=== PATIENT | male | born 1965 | race Caucasian/White ===

== ENCOUNTER 2016-06-24 07:11 | Day surgery (SDC) | payer BC, OTHER ==
[2016-06-21 12:06] VITALS: BMI 26.5
[~2016-06-24 07:11] MED LIST: LACTATED RINGERS 1,000 ML IV SCH
[2016-06-24 07:28] VITALS: TEMP 96.9
[2016-06-24 07:30] LABS: Glucose,Whole Blood 146 mg/dL (75-99)
[2016-06-24] MEDS ORDERED: PROPOFOL 10 MG/ML 20 ML VIAL IV ONE (08:30)
--- NOTE | 2016-06-24 09:22 | P.PCN ---
Date of Procedure: 06/24/16 Preoperative Diagnosis: Postoperative Diagnosis: Procedure(s) Performed: Procedure: 1. Esophagogastroduodenoscopy and biopsy. 2. Colonoscopy and biopsy. Preoperative diagnosis: Gastroesophageal reflux and screening for colon neoplasia. Postoperative diagnosis: 1. Very small sliding hiatal hernia with no obvious esophagitis or complicated reflux disease. 2. Mild antral gastritis. 3. Mild sigmoid diverticulosis. Preparation: HalfLytely prep. Sedation: Was provided by anesthesia. Brief clinical history: The patient is a 50-year-old male who is referred for this evaluation for the above reasons. For the last 2 months he has been experiencing some abdominal bloating and change in bowel habits as well. No bleeding or other alarm symptoms. Procedure: With the patient on his left lateral decubitus position and after informed consent and adequate sedation, I passed the Olympus-GIF 160 video upper endoscope through the cricopharyngeus down the esophagus. GE junction was around 43 cm from the incisors and there was a very small sliding hiatal hernia less than 1 cm. The esophagus did not show any erosions, ulcers, strictures or Payan's esophagus. The endoscope was then passed into the stomach which was insufflated with air and inspected in detail including the retroflex view in the cardia. There was some mottling and erythema in the antrum but no ulcers or erosions. Pyloric channel, duodenal bulb, post bulbar area and descending duodenum appeared within normal limits. Because of his symptoms, I obtained biopsies from the duodenum, antrum and esophagus then the endoscope was withdrawn and I proceeded with the colonoscopy. Perianal area did not show any fissures or fistulas. There were no masses felt on digital rectal examination. The Olympus CFQ 160L video colonoscope was then inserted in the rectum in the usual fashion and advanced to the cecum. I intubated the ileocecal valve and examined the terminal ileum as well. Terminal ileum and colon appeared healthy with no edema, erythema, friability, ulceration, exudation or spontaneous bleeding. There was occasional diverticular orifices seen scattered in the sigmoid with no evidence of acute diverticulitis or strictures. I retroflexed the endoscope in the rectum before the endoscope was withdrawn. I also obtained biopsies from the terminal ileum and right colon. The patient tolerated the procedure well. Plan: The patient was reassured. Will await pathology results. He will follow up with you as planned. I would be happy to see in the office if his symptoms persist. I recommended repeat colonoscopy in 10 years. Implants: Indications for Procedure: Operative Findings: Description of Procedure:
[2016-06-24 09:33] VITALS: BP 134/83; PULSE 64; RESP 18
== END 2016-06-24 10:10 | disposition home or self-care (01) ==
LOC: ORWHC2ENDO 07:11
DX: Z12.11 Encounter for screening for malignant neoplasm of colon (principal); K29.50 Unspecified chronic gastritis without bleeding; K44.9 Diaphragmatic hernia without obstruction or gangrene; K21.0 Gastro-esophageal reflux disease with esophagitis; K57.30 Diverticulosis of large intestine without perforation or abscess without bleeding; E11.9 Type 2 diabetes mellitus without complications; I10 Essential (primary) hypertension; E78.5 Hyperlipidemia, unspecified; G35 Multiple sclerosis; Z79.84 Long term (current) use of oral hypoglycemic drugs; Z79.82 Long term (current) use of aspirin; Z79.899 Other long term (current) drug therapy
CPT/HCPCS: 88305; 88342; 45380; 43239; J2704

== ENCOUNTER → 2016-08-19 | Outpatient (CLI) | payer BC ==
--- NOTE | 2016-08-19 12:38 | P.STRESS ---
- Stress Test Note Stress Test Results/Findings: Exam Performed: stress test Exam Date: 08/19/16 Height: 5 ft Weight: 87.997 kg Protocol: Anuj Stage: 111 Duration of Exercise: 8:20 Resting Heart Rate: 69 Resting Blood Pressure: 145/100 Maximum Achieved Heart Rate: 132 Maximum Achieved Blood Pressure: 183/52 85% PMHR: 145 100% PMHR: 170 METS: 10.9 Technologist Comment: Stress Test Results/Findings: Baseline rhythm is sinus mechanism, normal axis, poor wave progression. Patient exercised for 8 minutes 2o sec reaching a peak rate of 132 bpm which is equal to 78% maximum predicted heart rate. Test was terminated secondary to fatigue, there was no chest pain. EKG monitoring showed rate related left bundle branch block. Impression: 1. Average exercise tolerance. 2. Nondiagnostic EKG stress test with rate related left bundle branch block. If clinically indicated a pharmacological nuclear scan will be helpful.
--- NOTE | 2016-08-20 10:53 | ECHOF ---
Referral Reason:R00.2 Palpitations MEASUREMENTS -------- HEIGHT: 177.8 cm WEIGHT: 88.0 kg BP: 145/100 RVIDd: 2.9 cm (< 3.3) IVSd: 1.0 cm (0.6 - 1.1) LVIDd: 5.0 cm (3.9 - 5.3) LVPWd: 1.1 cm (0.6 - 1.1) IVSs: 1.8 cm LVIDs: 3.1 cm LVPWs: 1.7 cm LA Diam: 3.5 cm (2.7 - 3.8) LAESV Index (A-L): 16.74 ml/m Ao Diam: 3.2 cm (2.0 - 3.7) AV Cusp: 2.0 cm (1.5 - 2.6) MV EXCURSION: 18.872 mm (> 18.000) MV EF SLOPE: 93 mm/s (70 - 150) EPSS: 1.0 cm MV E Eugenio: 0.58 m/s MV DecT: 278 ms MV A Eugenio: 0.62 m/s MV E/A Ratio: 0.95 FINDINGS -------- Sinus rhythm. This was a technically good study. The left ventricular size is normal. Left ventricular wall thickness is normal. Overall left ventricular systolic function is normal with, an EF between 55 - 60 %. The right ventricle is normal in size. Normal LA size by volume 22+/-6 ml/m2. The right atrium is normal in size. The aortic valve is trileaflet and appears structurally normal. The mitral valve is normal. There is trace mitral regurgitation. The tricuspid valve appears structurally normal. There is no pulmonic regurgitation present. The aortic root size is normal. Normal inferior vena cava with normal inspiratory collapse consistent with estimated right atrial pressure of 5 mmHg. There is no pericardial effusion. CONCLUSIONS -------- 1. Sinus rhythm. 2. The tricuspid valve appears structurally normal. 3. There is no pulmonic regurgitation present. 4. The aortic root size is normal. 5. There is no pericardial effusion. 6. This was a technically good study. 7. Left ventricular wall thickness is normal. 8. Overall left ventricular systolic function is normal with, an EF between 55 - 60 %. 9. The right ventricle is normal in size. 10. Normal LA size by volume 22+/-6 ml/m2. 11. The aortic valve is trileaflet and appears structurally normal. 12. The mitral valve is normal. 13. There is trace mitral regurgitation. PARTS PULLER: Bekah Hamilton RDCS
== END ==
LOC: RADNMMAIN 11:20
PROVIDERS: ATTEND Family Medicine
DX: R00.2 Palpitations (principal); I34.0 Nonrheumatic mitral (valve) insufficiency
CPT/HCPCS: 93017; 93306

== ENCOUNTER 2018-10-29 06:32 | Emergency (ER) | payer BC, OTHER ==
[2018-10-29 06:39] VITALS: TEMP 97.6
[2018-10-29] MEDS ORDERED: MECLIZINE 12.5 MG TAB PO STA (06:47)
[2018-10-29] MEDS ORDERED: SODIUM CHLORIDE 0.9% 500 ML 500 ML IV STA (06:47)
[2018-10-29] MEDS ORDERED: methylPREDNISolone SOD SUCCI 125 MG/2 ML VIAL IV STA (06:47)
--- NOTE | 2018-10-29 06:51 | ED ---
General Adult HPI - General Chief complaint: Neuro Symptoms/Deficit Stated complaint: MS Convulsions Time Seen by Provider: 10/29/18 06:40 Source: patient, family, RN notes reviewed Mode of arrival: wheelchair Limitations: no limitations - History of Present Illness Initial comments: This a 53-year-old male presents emergency Department chief complaint of MS exacerbation. Patient states that he sees a neurologist out of [place]. Patient states that he does take daily medications states over the last few days she's had increase in symptoms in which she's been having convulsions, vertigo and and weakness. Patient states is her typical symptoms with exacerbation. Patient states he always has some weakness from his emesis on his left side. He denies any current chest pain shortness of breath. Patient states he also didn't strike his head while mowing the lawn a few days ago on the right side. Patient went to right sided headache posterior eye pain. Denies any blurred vision double vision. Patient states his vertigo is exacerba gina by movement. Patient denies any abdominal complaints. Patient also states with his MS that is having difficulty in thought process states that he is having difficulty thinking of his words which this is normal for him. - Related Data Home Medications Medication Instructions Recorded Confirmed Dimethyl Fumarate [Tecfidera] 240 mg PO BID 12/25/14 10/29/18 Empagliflozin/Linagliptin 1 tab PO DAILY 07/09/15 10/29/18 [Glyxambi 10 mg-5 mg Tablet] metFORMIN HCL [Glucophage] 1,000 mg PO BID 07/09/15 10/29/18 Ketorolac [Toradol] 10 mg PO Q6HR PRN 10/29/18 10/29/18 Allergies Allergy/AdvReac Type Severity Reaction Status Date / Time No Known Allergies Allergy Verified 10/29/18 08:10 Review of Systems ROS Statement: Those systems with pertinent positive or pertinent negative responses have been documented in the HPI. ROS Other: All systems not noted in ROS Statement are negative. Past Medical History Past Medical History: Cancer, Diabetes Mellitus, Hypertension Additional Past Medical History / Comment(s): multiple scerlosis, testicular, cancer, valley fever, bundle branch block, abdominal bloating and diarrhea History of Any Multi-Drug Resistant Organisms: None Reported Past Surgical History: Hernia Repair Additional Past Surgical History / Comment(s): surgery for testicular cancer Past Anesthesia/Blood Transfusion Reactions: No Reported Reaction Past Psychological History: No Psychological Hx Reported Smoking Status: Never smoker Past Alcohol Use History: None Reported Past Drug Use History: None Reported - Past Family History Mother Family Medical History: Diabetes Mellitus General Exam Limitations: no limitations General appearance: alert, in no apparent distress Head exam: Present: atraumatic, normocephalic, normal inspection Eye exam: Present: normal appearance, PERRL, EOMI. Absent: scleral icterus, conjunctival injection, periorbital swelling ENT exam: Present: normal exam, normal oropharynx, mucous membranes moist Neck exam: Present: normal inspection, full ROM. Absent: tenderness, meningismus, lymphadenopathy Respiratory exam: Present: normal lung sounds bilaterally. Absent: respiratory distress, wheezes, rales, rhonchi, stridor Cardiovascular Exam: Present: regular rate, normal rhythm, normal heart sounds. Absent: systolic murmur, diastolic murmur, rubs, gallop, clicks GI/Abdominal exam: Present: soft, normal bowel sounds. Absent: distended, tenderness, guarding, rebound, rigid Neurological exam: Present: alert, oriented X3, CN II-XII intact, reflexes normal. Absent: motor sensory deficit Skin exam: Present: warm, dry, intact, normal color. Absent: rash Course Vital Signs 10/29/18 06:33 Temperature 97.6 F Pulse Rate 80 Respiratory 18 Rate Blood Pressure 149/93 O2 Sat by Pulse 98 Oximetry Medical Decision Making - Medical Decision Making 53-year-old male presents emergency Department with chief complaint of possible MS exacerbation. He states he's had some complications at home and some cognitive changes though he's had no symptoms here and is given IV steroids workup was completed including labs and CT. We did discuss following up with his neurologist patient tomorrow for possible further dosing. Patient states that he prefers to have his significant other drove him to [facility] and which his neurologist practices out of [place]. Patient is stable for discharge - Lab Data Result diagrams: 10/29/18 07:10 10/29/18 07:10 Lab Results 10/29/18 10/29/18 10/29/18 Range/Units 07:10 07:10 07:10 WBC 5.1 (3.8-10.6) k/uL RBC 5.58 (4.30-5.90) m/uL Hgb 15.4 (13.0-17.5) gm/dL Hct 46.7 (39.0-53.0) % MCV 83.8 (80.0-100.0) fL MCH 27.7 (25.0-35.0) pg MCHC 33.1 (31.0-37.0) g/dL RDW 13.6 (11.5-15.5) % Plt Count 142 L (150-450) k/uL Neutrophils % 65 % Lymphocytes % 23 % Monocytes % 7 % Eosinophils % 2 % Basophils % 1 % Neutrophils # 3.3 (1.3-7.7) k/uL Lymphocytes # 1.2 (1.0-4.8) k/uL Monocytes # 0.3 (0-1.0) k/uL Eosinophils # 0.1 (0-0.7) k/uL Basophils # 0.0 (0-0.2) k/uL PT 9.6 (9.0-12.0) sec INR 0.9 (<1.2) APTT 24.8 (22.0-30.0) sec Sodium 139 (137-145) mmol/L Potassium 4.1 (3.5-5.1) mmol/L Chloride 104 (98-107) mmol/L Carbon Dioxide 25 (22-30) mmol/L Anion Gap 10 mmol/L BUN 18 (9-20) mg/dL Creatinine 0.72 (0.66-1.25) mg/dL Est GFR (CKD-EPI)AfAm >90 (>60 ml/min/1.73 sqM) Est GFR (CKD-EPI)NonAf >90 (>60 ml/min/1.73 sqM) Glucose 147 H (74-99) mg/dL Calcium 8.9 (8.4-10.2) mg/dL Total Bilirubin 0.4 (0.2-1.3) mg/dL AST 34 (17-59) U/L ALT 49 (21-72) U/L Alkaline Phosphatase 91 (38-126) U/L Troponin I (0.000-0.034) ng/mL Total Protein 6.7 (6.3-8.2) g/dL Albumin 4.1 (3.5-5.0) g/dL 10/29/18 Range/Units 07:10 WBC (3.8-10.6) k/uL RBC (4.30-5.90) m/uL Hgb (13.0-17.5) gm/dL Hct (39.0-53.0) % MCV (80.0-100.0) fL MCH (25.0-35.0) pg MCHC (31.0-37.0) g/dL RDW (11.5-15.5) % Plt Count (150-450) k/uL Neutrophils % % Lymphocytes % % Monocytes % % Eosinophils % % Basophils % % Neutrophils # (1.3-7.7) k/uL Lymphocytes # (1.0-4.8) k/uL Monocytes # (0-1.0) k/uL Eosinophils # (0-0.7) k/uL Basophils # (0-0.2) k/uL PT (9.0-12.0) sec INR (<1.2) APTT (22.0-30.0) sec Sodium (137-145) mmol/L Potassium (3.5-5.1) mmol/L Chloride (98-107) mmol/L Carbon Dioxide (22-30) mmol/L Anion Gap mmol/L BUN (9-20) mg/dL Creatinine (0.66-1.25) mg/dL Est GFR (CKD-EPI)AfAm (>60 ml/min/1.73 sqM) Est GFR (CKD-EPI)NonAf (>60 ml/min/1.73 sqM) Glucose (74-99) mg/dL Calcium (8.4-10.2) mg/dL Total Bilirubin (0.2-1.3) mg/dL AST (17-59) U/L ALT (21-72) U/L Alkaline Phosphatase (38-126) U/L Troponin I <0.012 (0.000-0.034) ng/mL Total Protein (6.3-8.2) g/dL Albumin (3.5-5.0) g/dL Disposition Clinical Impression: Exacerbation of multiple sclerosis, Transient speech disturbance Disposition: HOME SELF-CARE Condition: Stable Additional Instructions: Please return to the Emergency Department if symptoms worsen or any other concerns. Is patient prescribed a controlled substance at d/c from ED?: No Referrals: Jordan Herndon MD [Primary Care Provider] - 1-2 days Time of Disposition: 09:04
--- NOTE | 2018-10-29 07:13 | CT ---
EXAMINATION TYPE: CT brain wo con DATE OF EXAM: 10/29/2018 COMPARISON: Previous study dated 01/19/2017. HISTORY: MS convulsions CT DLP: 1078.4 mGycm Automated exposure control for dose reduction was used. FINDINGS: Central structures are midline. There is no evidence of hydrocephalus. There is some diffuse perivent ricular white matter lucency which may reflect the patient's known MS or some chronic white matter is chemic change. There is no acute focal lesion, mass effect or midline shift identified. I do not see evidence of intracranial blood. Visualized portions of the paranasal sinuses and mastoids are clear. The bony calvarium is intact. IMPRESSION: NO ACUTE INTRACRANIAL ABNORMALITY.
[2018-10-29 07:31] LABS: Basophils % (A) 1 %; Eosinophils # (A) 0.1 k/uL (0-0.7); Eosinophils % (A) 2 %; HCT 46.7 % (39.0-53.0); HGB 15.4 gm/dL (13.0-17.5); Lymphocytes # (A) 1.2 k/uL (1.0-4.8); Lymphocytes % (A) 23 %; MCH 27.7 pg (25.0-35.0); MCHC 33.1 g/dL (31.0-37.0); MCV 83.8 fL (80.0-100.0); Mean Platelet Volume 6.6; Monocytes # (A) 0.3 k/uL (0-1.0); Monocytes % (A) 7 %; Neutrophils # (A) 3.3 k/uL (1.3-7.7); Neutrophils % (A) 65 %; Platelet Count 142 k/uL (150-450); RBC 5.58 m/uL (4.30-5.90); RDW 13.6 % (11.5-15.5); WBC 5.1 k/uL (3.8-10.6)
[2018-10-29 07:37] LABS: INR 0.9 (<1.2); Partial Thromboplastin Time 24.8 sec (22.0-30.0); Prothrombin Time 9.6 sec (9.0-12.0)
[2018-10-29 07:42] LABS: ALT 49 U/L (21-72); AST 34 U/L (17-59); African American GFR (CKD) >90 (>60 ml/min/1.73 sqM); Albumin 4.1 g/dL (3.5-5.0); Alkaline Phosphatase 91 U/L (38-126); Anion Gap 10 mmol/L; Blood Urea Nitrogen 18 mg/dL (9-20); Calcium 8.9 mg/dL (8.4-10.2); Carbon Dioxide 25 mmol/L (22-30); Chloride 104 mmol/L (98-107); Glucose 147 mg/dL (74-99); Potassium 4.1 mmol/L (3.5-5.1); Sodium 139 mmol/L (137-145); Total Bilirubin 0.4 mg/dL (0.2-1.3); Total Protein 6.7 g/dL (6.3-8.2)
[2018-10-29 09:23] VITALS: BP 144/90; PULSE 68; RESP 16
== END 2018-10-29 09:13 | disposition home or self-care (01) ==
LOC: EC 06:32
DX: G35 Multiple sclerosis (principal); R47.9 Unspecified speech disturbances; I10 Essential (primary) hypertension; E11.9 Type 2 diabetes mellitus without complications; Z85.47 Personal history of malignant neoplasm of testis; Z79.84 Long term (current) use of oral hypoglycemic drugs; Z79.899 Other long term (current) drug therapy
CPT/HCPCS: 36415; 93005; 80053; 84484; 85025; 85610; 85730; 70450; 99284; 96374; 96361 ×2; J2930

== ENCOUNTER → 2020-01-22 | Outpatient (CLI) | payer OTHER ==
[2020-01-22 15:42] LABS: HCT 46.5 % (39.0-53.0); HGB 15.6 gm/dL (13.0-17.5); MCHC 33.5 g/dL (31.0-37.0); MCV 83.5 fL (80.0-100.0); Mean Platelet Volume 7.4; Platelet Count 171 k/uL (150-450); RBC 5.57 m/uL (4.30-5.90); RDW 13.1 % (11.5-15.5); WBC 7.5 k/uL (3.8-10.6)
[2020-01-22 15:49] LABS: African American GFR (CKD) >90 (>60 ml/min/1.73 sqM); Anion Gap 8 mmol/L; Blood Urea Nitrogen 18 mg/dL (9-20); Carbon Dioxide 30 mmol/L (22-30); Chloride 102 mmol/L (98-107); Non-African American GFR(CKD) >90 (>60 ml/min/1.73 sqM); Potassium 4.8 mmol/L (3.5-5.1); Sodium 140 mmol/L (137-145)
== END | disposition home or self-care (01) ==
LOC: LABPAT 15:07
PROVIDERS: ATTEND Internal Medicine Cardiovascular Disease
DX: Z01.818 Encounter for other preprocedural examination (principal); I25.10 Atherosclerotic heart disease of native coronary artery without angina pectoris
CPT/HCPCS: 80051; 82565; 84520; 85027

== ENCOUNTER 2020-02-14 11:04 | Day surgery (SDC) | payer OTHER ==
[~2020-02-14 11:04] MED LIST changes: +ALPRAZolam 0.25 MG TAB PO PRN; +ALPRAZolam 0.5 MG TAB PO PRN; +ASPIRIN 325 MG TAB PO ONE; +ATORVASTATIN 80 MG TAB PO ONE; +HEPARIN SODIUM,PORCINE 10,000 UNIT in SODIUM CHLORIDE 0.9% 1,000 ML IRRIGATION PRN; +HEPARIN SODIUM,PORCINE 2,500 UNIT in SODIUM CHLORIDE 0.9% 250 ML IRRIGATION PRN; -LACTATED RINGERS 1,000 ML IV SCH; +NITROGLYCERIN SL TABS 0.4 MG TAB SUBLINGUAL PRN; +SODIUM CHLORIDE 0.9% 1,000 ML in EMPTY BAG 1 BAG IV ONE
[2020-02-14] MEDS ORDERED: SODIUM CHLORIDE 0.9% 1,000 ML IV ONE (11:28)
[2020-02-14 12:00] LABS: Glucose,Whole Blood 130 mg/dL (75-99)
[2020-02-14] MEDS ORDERED: VERAPAMIL 2.5 MG/ML 2 ML AMP ONE (13:09)
[2020-02-14] MEDS ORDERED: LIDOCAINE 1% INJ 10MG/ML (20 ML MDV) ONE (13:09)
[2020-02-14] MEDS ORDERED: fentaNYL (PF) 50 MCG/ML 2 ML AMP ONE (13:20)
[2020-02-14] MEDS ORDERED: HEPARIN SODIUM 1,000 UN/ML (10ML VL) ONE (13:20)
[2020-02-14] MEDS ORDERED: fentaNYL (PF) 50 MCG/ML 2 ML AMP IV ONE (13:29)
[2020-02-14] MEDS ORDERED: MIDAZOLAM 2 MG/2 ML VIAL IV ONE (13:30)
[2020-02-14] MEDS ORDERED: LIDOCAINE 1% INJ 10MG/ML (20 ML MDV) SQ ONE (13:31)
[2020-02-14] MEDS ORDERED: VERAPAMIL SYRINGE (5 MG/10 ML) INTRAARTER ONE (13:35)
[2020-02-14] MEDS: HEPARIN SODIUM 1,000 UN/ML (10ML VL) IV ONE ×3 (13:37→14:03)
[2020-02-14] MEDS ORDERED: CLOPIDOGREL 75 MG TAB ONE (13:55)
[2020-02-14] MEDS ORDERED: CLOPIDOGREL 75 MG TAB PO ONE (14:00)
--- NOTE | 2020-02-14 14:04 | P.CARDCATH ---
Date of Procedure: 02/14/20 Preoperative Diagnosis: Exertional angina with positive stress test Postoperative Diagnosis: Critical lesion involving the LAD. Mild to moderate disease involving the intermediate and right coronary artery Procedure(s) Performed: Left heart catheterization without left ventriculography Description of Procedure: HISTORY: This is a 54-year-old gentleman with history of hypertension, hypercholesterolemia, [id number]-[id number] diabetes mellitus who has been having exertional symptoms of angina. Stress test showed ischemia in the anteroapical wall. Patient is advised to have a cardiac catheterization for definitive diagnosis. CONSENT:I have discussed the risks, benefits and alternative therapies for the above-mentioned procedure and for both sedation/analgesia as well as necessary blood product administration, if indicated, as they pertain to this patient. The patient has indicated understanding and acceptance of the risks and procedures discussed. PROCEDURE: Patient was brought to the lab in a fasting state. Patient was given some IV sedation. The right wrist is infiltrated with lidocaine and right radial artery was entered using Seldinger technique. A 6-[place] catheter was left in place and selective coronary arteriography was performed. Patient tolerated the procedure well. Patient went on to have stent placement of the LAD by Dr. Diop . No immediate complications were noted . Conscious Sedation: Versed 2mg Fentanyl 25 g Duration 20minutes HEMODYNAMICS: Aortic pressure is about 120/80. Left ventricular end-diastolic pressure is 15. There was no gradient across the aortic valve SELECTIVE CORONARY ARTERIOGRAPHY: LEFT MAIN: Long and free of occlusive disease THE LEFT ANTERIOR DESCENDING CORONARY ARTERY: . This is a good caliber vessel with about 95% stenosis in the proximal portion involving the origin of a small septal branch. THE INTERMEDIATE CORONARY ARTERY : This is a small to moderate caliber vessel with 50-60% lesion in the proximal portion. THE LEFT CIRCUMFLEX AND IS CORONARY ARTERY: . This is a good caliber vessel giving rise to good-sized PLV branch Was disease. THE RIGHT CORONARY ARTERY: this is a fairly caliber vessel with mild to moderate disease in the proximal portion with 20-30% stenosis LEFT VENTRICULOGRAPHY: Not performed FINAL IMPRESSION: Critical lesion involving the proximal LAD. Mild to moderate disease in the intermediate and mild disease in the right coronary artery PLAN: Stent placement of the LAD being done by Dr. Diop. PROGNOSIS:Fair
[2020-02-14] MEDS ORDERED: IOPAMIDOL-370 125ML BTL INJ ONE (14:11)
[2020-02-14] MEDS ORDERED: IOPAMIDOL-370 100ML BTL INJ ONE (14:27)
[2020-02-14] MEDS ORDERED: NITROGLYCERIN SL TABS 0.4 MG TAB SUBLINGUAL PRN (14:32)
[2020-02-14] MEDS ORDERED: ZOLPIDEM 5 MG TAB PO PRN (14:32)
[2020-02-14] MEDS ORDERED: MAG HYDROX/AL HYDROX/SIMETH 30 ML CUP PO PRN (14:32)
[2020-02-14] MEDS ORDERED: ATROPINE SULFATE 0.1 MG/ML 10ML SYRINGE IV PRN (14:32)
[2020-02-14] MEDS ORDERED: RX INFO: IV CONTRAST WAS GIVEN 1 EACH MISC MISCELLANE PRN (14:32)
[2020-02-14] MEDS ORDERED: SODIUM CHLORIDE 0.9% 1,000 ML IV SCH (14:45)
[2020-02-14] MEDS: NEBIVOLOL 5 MG TAB PO SCH (15:14)
--- NOTE | 2020-02-14 16:32 | CC ---
CARDIAC CATHETERIZATION REPORT PROCEDURE PERFORMED: Angioplasty. HISTORY OF PRESENT ILLNESS: Patient a 54-year-old male with a known history of hypertension, hyperlipidemia, diabetes mellitus, who has been complaining of exertional chest discomfort, underwent a stress test and was found to have anterior wall ischemia. Subsequently underwent cardiac catheterization by Dr. Loyola and was found to have critical stenosis involving the proximal LAD. In view of that, recommendation regarding angioplasty and stenting, the procedures, risks, and complication were discussed with the patient who is in full understanding and agreement. PROCEDURE: A 6-Citizen Of [place] 3.5 guiding catheter was introduced into the system. After cannulating the left main a 0.014 balanced medium weight J-wire was advanced across the lesion positioned distal LAD. Subsequently, 2.5 x 12 mm NC Emerge balloon was advanced and one inflation at 10 atmospheres was done. Following that the balloon was removed and a 3.25 x 15 mm Xience Maxine stent was deployed postdilated at 16 atmospheres. After the last inflation, after appropriate wait, the balloon and the guidewire was withdrawn back in the guiding catheter. Images were obtained and repeated. Those images reveal stable successful stenting. At that point, the guiding catheter, the balloon and the guidewire were removed. The sheath was removed. Hemostasis was obtained with deployment TR band. There was no immediate complication. The patient was returned to his room in stable condition. Of note, the patient had chest discomfort and EKG changes with the inflation that resolved at the end of the procedure. He received an oral loading dose of clopidogrel as well as in additional 4000 units of intravenous heparin and his ACT was monitored. RESULTS: Successful stenting of the proximal left anterior descending with reduction of stenosis from 95% to 0%. RECOMMENDATION: Patient will be continued on aspirin, Plavix, and statin. The importance of dual antiplatelet treatment were discussed with the patient and he is in full understanding and agreement. DURATION OF THE SEDATION: 22 minutes. MMODL / IJN: [id number] /
--- NOTE | 2020-02-14 16:38 | LTR ---
February 14, 2020 RE: Brian Srivastava Dear Dr. Griffin: I had the pleasure to perform coronary angioplasty and stenting on Mr. Srivastava at [facility] on 02/14/2020. A full copy of the procedure note will be forwarded to you. In brief, he was found to have critical stenosis involving the proximal LAD and underwent successful stenting of that vessel. I am hopeful that this procedure will stabilize his status. Thank you again for allowing me to participate in his care. Sincerely, Tracey Diop M.D. NICOLE / JORDON: [id number] /
[2020-02-14 17:10] LABS: Glucose,Whole Blood 207 mg/dL (75-99)
[2020-02-14] MEDS: glipiZIDE 5 MG TAB PO SCH (17:30)
[2020-02-14 19:58] LABS: Glucose,Whole Blood 139 mg/dL (75-99)
[2020-02-15 06:10] LABS: Glucose,Whole Blood 132 mg/dL (75-99)
[2020-02-15] MEDS: glipiZIDE 5 MG TAB PO SCH (06:38)
[2020-02-15 08:37] LABS: African American GFR (CKD) >90 (>60 ml/min/1.73 sqM); Anion Gap 6 mmol/L; Blood Urea Nitrogen 17 mg/dL (9-20); Calcium 8.8 mg/dL (8.4-10.2); Carbon Dioxide 29 mmol/L (22-30); Chloride 102 mmol/L (98-107); Glucose 126 mg/dL (74-99); Non-African American GFR(CKD) >90 (>60 ml/min/1.73 sqM); Potassium 4.1 mmol/L (3.5-5.1); Sodium 137 mmol/L (137-145)
[2020-02-15] MEDS: NEBIVOLOL 5 MG TAB PO SCH (08:39)
[2020-02-15] MEDS ORDERED: ASPIRIN 81 MG PO SCH (09:00)
[2020-02-15] MEDS ORDERED: NEBIVOLOL 5 MG TAB PO SCH (09:00)
[2020-02-15] MEDS ORDERED: ATORVASTATIN 80 MG TAB PO SCH (09:00)
[2020-02-15 11:39] VITALS: BP 173/75; PULSE 72; RESP 18; TEMP 98.7
[2020-02-15] MEDS ORDERED: CLOPIDOGREL 75 MG TAB PO SCH (12:00)
--- NOTE | 2020-02-15 12:43 | P.DS ---
Providers Date of admission: 02/14/2020 Attending physician: Norah Loyola Consults: 02/14/20 14:32 Consult Physician Routine Consulting Provider: [facility] Consult Reason/Comments: Post Interventional patient Do you want consulting provider notified?: Already Contacted Primary care physician: [facility] Course: This 54-year-old gentleman was brought in as an outpatient for cardiac catheterization because of chest pain and positive stress test. He was found to have 95% critical stenosis involving the proximal LAD with moderate disease in the intermediate and mild to moderate disease in the RCA. Patient had stent placement of the LAD by Dr. Diop . Patient remained stable. He is hemodynamically stable overnight. No complaints of any chest pain or shortness of breath. Patient is tolerating activity. His puncture site is soft without any hematoma. Radial pulses bounding. Patient is being discharged home. Patient is advised not to take his metformin for 48 hours. He will be and aspirin and Plavix for 1 year. Activity to increasing gradually, but otherwise clinically looking pushing, pulling the right arm. Follow-up in the office in one week Plan - Discharge Summary Discharge Rx Participant: Yes New Discharge Prescriptions: New Aspirin 81 mg PO DAILY chew glipiZIDE [Glucotrol] 5 mg PO AC-BID tab Atorvastatin [Lipitor] 80 mg PO DAILY #90 tab Nitroglycerin Sl Tabs [Nitrostat] 0.4 mg SUBLINGUAL Q5M PRN tab PRN Reason: Chest Pain Clopidogrel [Plavix] 75 mg PO DAILY #90 tab lisinopriL [Zestril] 2.5 mg PO DAILY #30 tab Continue Dimethyl Fumarate [Tecfidera] 240 mg PO BID Nebivolol HCl [Bystolic] 10 mg PO DAILY Isosorbide Mononitrate [Isosorbide Mononitrate ER] 30 mg PO DAILY Discontinued metFORMIN HCL [Glucophage] 1,000 mg PO BID glipiZIDE [Glucotrol] 5 mg PO AC-BID Pravastatin Sodium [Pravachol] 40 mg PO DAILY Aspirin 325 mg PO DAILY Discharge Medication List Dimethyl Fumarate [Tecfidera] 240 mg PO BID 12/25/14 [History] Isosorbide Mononitrate [Isosorbide Mononitrate ER] 30 mg PO DAILY 02/11/20 [History] Nebivolol HCl [Bystolic] 10 mg PO DAILY 02/11/20 [History] Aspirin 81 mg PO DAILY chew 02/15/20 [Rx] Atorvastatin [Lipitor] 80 mg PO DAILY #90 tab 02/15/20 [Rx] Clopidogrel [Plavix] 75 mg PO DAILY #90 tab 02/15/20 [Rx] Nitroglycerin Sl Tabs [Nitrostat] 0.4 mg SUBLINGUAL Q5M PRN tab 02/15/20 [Rx] glipiZIDE [Glucotrol] 5 mg PO AC-BID tab 02/15/20 [Rx] lisinopriL [Zestril] 2.5 mg PO DAILY #30 tab 02/15/20 [Rx] Follow up Appointment(s)/Referral(s): [facility] [NON-STAFF] - 1 Week (After discharge, you will follow- up with your logistician. Once you have obtained a prescription for cardiac rehab, please call [phone] to set up an evaluation.) Norah Loyola MD [STAFF PHYSICIAN] - 02/18/20 10:30 am (APPOINTMENT MADE ON February @ 10:30AM ) Patient Instructions/Handouts: *Surgery [facility] - After Heart Catheterization - Maintenance Mechanic Helper Instructions, After Radial Heart Catheterization (GEN) Activity/Diet/Wound Care/Special Instructions: no metformin for 48 hours. No driving for two days Ok to shower but no baths, pools, lakes, doing dishes by hand for five days. Signs of infection IE: fever, rash, drainage from puncture site, swelling go to ER/doctor for immediate evaluation. Avoid using right wrist/hand to bend, flex, lift greater than 5 lbs for five days. For Heavy Bleeding of puncture site apply firm direct pressure and return to ER. Do not attempt to drive self. low sodium/low fat diet medications as directed by Cardiologists Discharge Disposition: HOME SELF-CARE
[2020-02-15 14:03] VITALS: BMI 28.2
--- NOTE | 2020-02-15 15:44 | P.CONS ---
History of Present Illness - Reason for Consult Consult date: 02/15/20 - History of Present Illness HISTORY OF PRESENT ILLNESS This is a 54 year old male patient of Dr. Warren with past medical history of hypertension, hyperlipidemia, diabetes mellitus type 2, multiple sclerosis, testicular cancer, valley fever. He has been brought into the hospital after having an abnormal stress test the care of Dr. Loyola status post heart catheterization which revealed critical stenosis involving the proximal LAD and subsequently underwent angioplasty and stenting with Dr. Diop. Patient states he denies any chest pain, shortness of breath. He is scheduled for discharge home today. REVIEW OF SYSTEMS Constitutional: No fever, no chills, no night sweats. No weight change. No weakness, fatigue or lethargy. No daytime sleepiness. EENT: No headache. No blurred vision or double vision, no loss of vision. No loss of Hearing, no ringing in the ears, no dizziness. No nasal drainage or congestion. No epistaxis. No sore throat. Lungs: No shortness of breath, cough, no sputum production. No wheezing. Cardiovascular: No chest pain, no lower extremity edema. No palpitations. No paroxysmal nocturnal dyspnea. No orthopnea. No lightheadedness or dizziness. No syncopal episodes. Abdominal: No abdominal pain. No nausea, vomiting. No diarrhea. No constipation. No bloody or tarry stools.. No loss of appetite. Genitourinary: No dysuria, increased frequency, urgency. No urinary retention. Musculoskeletal: No myalgias. No muscle weakness, no gait dysfunction, no frequent falls. No back pain. No neck pain. Integumentary: No wounds, no lesions. No rash or pruritus. No unusual bruising. No change in hair or nails. Neurologic: No aphasia. No facial droop. No change in mentation. No head injury. No headache. No paralysis. No paresthesia. Psychiatric: No depression. No anxiety. No mood swings. Endocrine: No abnormal blood sugars. No weight change. No excessive sweating or thirst. No cold intolerance. SOCIAL HISTORY Patient is a lifelong nonsmoker, no marijuana use, illicit drug use. No alcohol use. 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 He has moved to the area to take care of his mother. FAMILY HISTORY Father at age 74 from Alzheimer's dementia and Parkinson's disease. Mother is alive with history of Alzheimer's disease. Patient has 1 sister with no major medical problems. He does not have any children.. PHYSICAL EXAMINATION Gen: This is is a 54-year-old male. His resting bed appears to be comfortable and in no acute distress. HEENT: Head is atraumatic, normocephalic. Pupils equal, round. Sclerae is anicteric. NECK: Supple. No JVD. No lymphadenopathy. No thyromegaly. LUNGS: Clear to auscultation. No wheezes or rhonchi. No intercostal retractions. HEART: Regular rate and rhythm. No murmur. ABDOMEN: Soft. Bowel sounds are present. No masses. No tenderness. EXTREMITIES: No pedal edema. No calf tenderness. NEUROLOGICAL: Patient is awake, alert and oriented x3. Cranial nerves 2 through 12 are grossly intact. ASSESSMENT AND PLAN 1. Exertional angina status post heart catheterization and stenting of the proximal LAD. Continue aspirin 81 mg daily, Lipitor 80 mg daily, Plavix 75 mg daily, lisinopril 2.5 mg daily, Imdur 30 mg daily, by systolic 10 mg daily. 2. Hypertension. Continue by systolic, lisinopril. 3. Hyperlipidemia. Continue Lipitor. 4. Diabetes mellitus type 2. 5. Multiple sclerosis, stable without exacerbation. 6. History of testicular cancer. 7. History of valley fever. DISCHARGE PLAN Home today. Impression and plan of care have been directed as dictated by the signing physician. Alexia London nurse practitioner acting as scribe for signing physician. Past Medical History Past Medical History: Cancer, Diabetes Mellitus, Hyperlipidemia, Hypertension Additional Past Medical History / Comment(s): multiple scerlosis, testicular cancer, valley fever, bundle branch block, abdominal bloating and diarrhea History of Any Multi-Drug Resistant Organisms: None Reported Past Surgical History: Hernia Repair Additional Past Surgical History / Comment(s): surgery for testicular cancer. COLONOSCOPY Past Anesthesia/Blood Transfusion Reactions: No Reported Reaction Past Psychological History: No Psychological Hx Reported Smoking Status: Never smoker Past Alcohol Use History: None Reported Past Drug Use History: None Reported - Past Family History Mother Family Medical History: Diabetes Mellitus Medications and Allergies Home Medications Medication Instructions Recorded Confirmed Type Dimethyl Fumarate [Tecfidera] 240 mg PO BID 12/25/14 02/14/20 History Isosorbide Mononitrate [Isosorbide 30 mg PO DAILY 02/11/20 02/14/20 History Mononitrate ER] Nebivolol HCl [Bystolic] 10 mg PO DAILY 02/11/20 02/14/20 History Aspirin 81 mg PO DAILY chew 02/15/20 Rx Atorvastatin [Lipitor] 80 mg PO DAILY #90 tab 02/15/20 Rx Clopidogrel [Plavix] 75 mg PO DAILY #90 tab 02/15/20 Rx Nitroglycerin Sl Tabs [Nitrostat] 0.4 mg SUBLINGUAL Q5M PRN tab 02/15/20 Rx glipiZIDE [Glucotrol] 5 mg PO AC-BID tab 02/15/20 Rx lisinopriL [Zestril] 2.5 mg PO DAILY #30 tab 02/15/20 Rx Allergies Allergy/AdvReac Type Severity Reaction Status Date / Time No Known Allergies Allergy Verified 02/11/20 10:46 Physical Exam Vitals: Vital Signs Temp Pulse Pulse Resp BP BP Pulse Ox 02/15/20 08:00 63 16 115/66 95 02/15/20 04:00 97.9 F 58 L 16 118/79 97 02/15/20 02:00 58 L 17 02/14/20 23:18 97.7 F 69 17 132/74 97 02/14/20 20:00 98.8 F 72 18 131/77 96 02/14/20 16:17 75 16 138/92 97 02/14/20 15:47 70 18 139/81 97 02/14/20 15:14 77 16 155/87 96 02/14/20 15:02 74 16 155/82 98 02/14/20 14:47 76 16 167/87 97 02/14/20 11:45 97.9 F 64 16 150/86 135/77 98 Intake and Output 02/14/20 02/15/20 02/15/20 22:59 06:59 14:59 Intake Total 615 Output Total 700 Balance -85 Intake: IV 75 Sodium Chloride 0.9% 1, 75 000 ml @ 75 mls/hr IV . [id number] SAULO Rx#:[id number] Oral 540 Output: Urine 700 Other: Voiding Method Urinal Urinal # Voids 1 Weight 88 kg 89.2 kg Results CBC & Chem 7: 02/15/20 07:45 Labs: Abnormal Lab Results - Last 24 Hours (Table) 02/14/20 02/14/20 02/14/20 Range/Units 11:51 17:08 19:56 Glucose (74-99) mg/dL POC Glucose (mg/dL) 130 H 207 H 139 H (75-99) mg/dL 02/15/20 02/15/20 Range/Units 06:08 07:45 Glucose 126 H (74-99) mg/dL POC Glucose (mg/dL) 132 H (75-99) mg/dL
== END 2020-02-15 13:08 | disposition home or self-care (01) ==
LOC: CATHCVL 11:04 → 3SCARD 14:19 → CATHCVL 02-15 13:08
PROVIDERS: ATTEND Internal Medicine Cardiovascular Disease
DX: I25.119 Atherosclerotic heart disease of native coronary artery with unspecified angina pectoris (principal); I10 Essential (primary) hypertension; E11.9 Type 2 diabetes mellitus without complications; G35 Multiple sclerosis; E78.2 Mixed hyperlipidemia; Z85.47 Personal history of malignant neoplasm of testis; Z79.84 Long term (current) use of oral hypoglycemic drugs; Z79.82 Long term (current) use of aspirin; Z79.899 Other long term (current) drug therapy; Z98.890 Other specified postprocedural states; Z82.49 Family history of ischemic heart disease and other diseases of the circulatory system; Z83.3 Family history of diabetes mellitus; Z81.8 Family history of other mental and behavioral disorders
CPT/HCPCS: 93458; 80048; C9600; C1769 ×2; C1887; C1725; C1874; C1894; J2250; J2001; J3010; J1644; Q9967 ×2

== ENCOUNTER 2021-01-01 12:08 | Emergency (ER) | payer BC ==
[2021-01-01 14:03] VITALS: RESP 20
--- NOTE | 2021-01-01 14:50 | ED ---
General Adult HPI - General Chief complaint: Headache Stated complaint: BAM Time Seen by Provider: 01/01/21 13:52 Source: patient, RN notes reviewed Mode of arrival: ambulatory Limitations: no limitations - History of Present Illness Initial comments: This is a 55-year-old male presents emergency from chief complaint of COVID-19. Patient states he went to receive a COVID-19 test to go to [facility] yesterday states that he tested positive he started developing symptoms shortly after. He's had mild congestion cough, headache. Patient states currently on antibiotics for sinus infection that was diagnosed on MRI. Patient denies any significant fevers or chills patient's concern as he has MS patient was referred emergency department for monoclonal antibody infusion. - Related Data Home Medications Medication Instructions Recorded Confirmed Dimethyl Fumarate [Tecfidera] 240 mg PO BID 12/25/14 02/14/20 Isosorbide Mononitrate [Isosorbide 30 mg PO DAILY 02/11/20 02/14/20 Mononitrate ER] Nebivolol HCl [Bystolic] 10 mg PO DAILY 02/11/20 02/14/20 Previous Rx's Medication Instructions Recorded Aspirin 81 mg PO DAILY chew 02/15/20 Atorvastatin [Lipitor] 80 mg PO DAILY #90 tab 02/15/20 Clopidogrel [Plavix] 75 mg PO DAILY #90 tab 02/15/20 Nitroglycerin Sl Tabs [Nitrostat] 0.4 mg SUBLINGUAL Q5M PRN tab 02/15/20 glipiZIDE [Glucotrol] 5 mg PO AC-BID tab 02/15/20 lisinopriL [Zestril] 2.5 mg PO DAILY #30 tab 02/15/20 Allergies Allergy/AdvReac Type Severity Reaction Status Date / Time No Known Allergies Allergy Verified 01/01/21 14:01 Review of Systems ROS Statement: Those systems with pertinent positive or pertinent negative responses have been documented in the HPI. ROS Other: All systems not noted in ROS Statement are negative. Past Medical History Past Medical History: Cancer, Diabetes Mellitus, Hyperlipidemia, Hypertension Additional Past Medical History / Comment(s): multiple scerlosis, testicular cancer, valley fever, bundle branch block, abdominal bloating and diarrhea History of Any Multi-Drug Resistant Organisms: None Reported Past Surgical History: Hernia Repair Additional Past Surgical History / Comment(s): surgery for testicular cancer. COLONOSCOPY Past Anesthesia/Blood Transfusion Reactions: No Reported Reaction Past Psychological History: No Psychological Hx Reported Smoking Status: Never smoker Past Alcohol Use History: None Reported Past Drug Use History: None Reported - Past Family History Mother Family Medical History: Diabetes Mellitus General Exam Limitations: no limitations General appearance: alert, in no apparent distress Head exam: Present: atraumatic, normocephalic, normal inspection Neck exam: Present: normal inspection, full ROM. Absent: tenderness, meningismus, lymphadenopathy Respiratory exam: Present: normal lung sounds bilaterally. Absent: respiratory distress, wheezes, rales, rhonchi, stridor Cardiovascular Exam: Present: regular rate, normal rhythm, normal heart sounds. Absent: systolic murmur, diastolic murmur, rubs, gallop, clicks Course Vital Signs 01/01/21 13:54 Temperature 97.2 F L Pulse Rate 95 Respiratory 20 Rate Blood Pressure 130/79 O2 Sat by Pulse 96 Oximetry Medical Decision Making - Medical Decision Making Patient is positive for COVID-19 will receive monoclonal antibodies and discharged in stable condition. Disposition Clinical Impression: COVID-19 Disposition: HOME SELF-CARE Condition: Stable Instructions (If sedation given, give patient instructions): Coronavirus Disease 2019 (COVID-19) Additional Instructions: Please return to the Emergency Department if symptoms worsen or any other concerns. Is patient prescribed a controlled substance at d/c from ED?: No Referrals: Jordan Griffin MD [Primary Care Provider] - 1-2 days Time of Disposition: 14:50
[2021-01-01] MEDS ORDERED: SODIUM CHLORIDE 0.9% 50 ML IVPB ONE (15:15)
[2021-01-01] MEDS ORDERED: CASIRIVIMAB (REGN10933) (EUA) 600 MG, IMDEVIMAB (REGN10987) (EUA) 600 MG in SODIUM CHLO... IVPB ONE (15:15)
[2021-01-01 17:23] VITALS: BP 152/93; PULSE 97; TEMP 100.4
== END 2021-01-01 17:02 | disposition home or self-care (01) ==
LOC: EC 12:08
DX: U07.1 COVID-19 (principal); E78.5 Hyperlipidemia, unspecified; I10 Essential (primary) hypertension; E11.9 Type 2 diabetes mellitus without complications; Z79.84 Long term (current) use of oral hypoglycemic drugs; Z79.899 Other long term (current) drug therapy
CPT/HCPCS: 99284; Q0243

== ENCOUNTER 2021-02-08 19:11 | Emergency (ER) | payer BC ==
[2021-02-08 21:39] VITALS: BP 170/88; PULSE 58; RESP 20; TEMP 97.6
[2021-02-08] MEDS ORDERED: MORPHINE SULFATE 2 MG/ML SYRINGE IVP ONE (21:59)
--- NOTE | 2021-02-08 22:10 | ED ---
General Adult HPI - General Chief complaint: Eye Problems Stated complaint: right infected eye Time Seen by Provider: 02/08/21 21:41 Source: patient, RN notes reviewed, old records reviewed Mode of arrival: ambulatory - History of Present Illness Initial comments: This is a well-appearing 55-year-old male patient Presents to the emergency room with complaints of a stye to his right lower eyelid that has been there since Tuesday. He was seen at urgent care and put on tobramycin drops and ketorolac. He states that it progressively getting more swollen and red now. He states that he has developed a headache bilateral temporal has a history of pain with movement of the eye. He states that the pain comes and goes but denies any fevers, dizziness, nausea vomiting or diarrhea. Patient does have a history of diabetes, hypertension and multiple sclerosis. He does work in the hospital -: days(s) (5) Location: eyes, right Severity scale (1-10): 4 Quality: aching Consistency: constant Improves with: none Worsens with: movement Associated Symptoms: headaches Treatments Prior to Arrival: other (Tobramycin drops and ketorolac given at urgent care) - Related Data Home Medications Medication Instructions Recorded Confirmed Dimethyl Fumarate [Tecfidera] 240 mg PO BID 12/25/14 02/08/21 Isosorbide Mononitrate [Isosorbide 30 mg PO DAILY 02/11/20 02/08/21 Mononitrate ER] Albuterol Inhaler [Ventolin Hfa 2 puff INHALATION RT-Q4H PRN 02/08/21 02/08/21 Inhaler] Metoprolol Tartrate [Lopressor] 25 mg PO BID 02/08/21 02/08/21 Pravastatin Sodium [Pravachol] 40 mg PO DAILY 02/08/21 02/08/21 metFORMIN HCL [Glucophage] 1,000 mg PO BID 02/08/21 02/08/21 Previous Rx's Medication Instructions Recorded Aspirin 81 mg PO DAILY chew 02/15/20 Clopidogrel [Plavix] 75 mg PO DAILY #90 tab 02/15/20 Nitroglycerin Sl Tabs [Nitrostat] 0.4 mg SUBLINGUAL Q5M PRN tab 02/15/20 lisinopriL [Zestril] 2.5 mg PO DAILY #30 tab 02/15/20 Amoxicillin 875 mg PO Q12HR 7 Days #14 tablet 02/08/21 Sulfamethox-Tmp 800-160Mg [Bactrim 1 each PO Q12HR 7 Days #14 tab 02/08/21 Ds] Allergies Allergy/AdvReac Type Severity Reaction Status Date / Time No Known Allergies Allergy Verified 02/08/21 22:07 Review of Systems ROS Statement: Those systems with pertinent positive or pertinent negative responses have been documented in the HPI. ROS Other: All systems not noted in ROS Statement are negative. Past Medical History Past Medical History: Cancer, Diabetes Mellitus, Hyperlipidemia, Hypertension Additional Past Medical History / Comment(s): multiple scerlosis, testicular cancer, valley fever, bundle branch block, abdominal bloating and diarrhea History of Any Multi-Drug Resistant Organisms: None Reported Past Surgical History: Hernia Repair Additional Past Surgical History / Comment(s): surgery for testicular cancer. COLONOSCOPY Past Anesthesia/Blood Transfusion Reactions: No Reported Reaction Past Psychological History: Depression Smoking Status: Never smoker Past Alcohol Use History: None Reported Past Drug Use History: None Reported - Past Family History Mother Family Medical History: Diabetes Mellitus General Exam Limitations: no limitations General appearance: alert, in no apparent distress Head exam: Present: atraumatic, normocephalic, normal inspection Eye exam: Present: EOMI, conjunctival injection (right eye), periorbital swelling (right), periorbital tenderness (right). Absent: scleral icterus, nystagmus Pupils: Present: normal accommodation Expanded Eyelids: Stye: Right, Erythema: Right, Swelling: Right Pupils: Regular, Round: Bilateral, Reactive: Bilateral Sclera/Conjunctival: Normal Inspection: Left, Injection: Right, Exudate: Right Posterior chamber: Deferred: Bilateral ENT exam: Present: normal exam, normal oropharynx, mucous membranes moist Neck exam: Present: normal inspection, full ROM. Absent: tenderness, meningismus, lymphadenopathy, thyromegaly Respiratory exam: Present: normal lung sounds bilaterally. Absent: respiratory distress, wheezes, rales, rhonchi, stridor, chest wall tenderness, accessory muscle use, decreased breath sounds, prolonged expiratory Cardiovascular Exam: Present: bradycardia, normal heart sounds. Absent: JVD Neurological exam: Present: alert, oriented X3 Psychiatric exam: Present: normal affect, normal mood Skin exam: Present: warm, dry, normal color. Absent: rash, cyanosis, diaphoretic Course Vital Signs 02/08/21 21:33 Temperature 97.6 F Pulse Rate 58 L Respiratory 20 Rate Blood Pressure 170/88 O2 Sat by Pulse 99 Oximetry Medical Decision Making - Medical Decision Making 55-year-old male patient presents with complaints of a stye to his right lower eyelid since Tuesday. He was seen at urgent care and put on tobramycin drops and ketorolac. He states that it progressively getting more swollen and red. He now has a headache and pain with movement of the eye. He denies any vision changes, fevers, dizziness, nausea or vomiting. Patient does have a history of diabetes, hypertension and multiple sclerosis. WBC 6.0. CT shows a right-sided preseptal soft tissue swelling inferior to the right orbit. There is also swelling anterior to the right maxilla consistent with cellulitis. There is no drainable fluid collection. Blood cultures and an eye culture were sent. Extraocular eye movements are intact , there is no evidence of proptosis. He denies any visual changes at this time. Patient was offered morphine and declined. With shared decision making the patient decided to be discharged home with antibiotics and follow-up with ophthalmology tomorrow morning. Strict return parameters were discussed and he will return if any increasing pain, fever, headache or vision changes. He was given a dose of Unasyn in the emergency room IV. He was directed to discontinue the tobramycin eyedrops. Case was discussed with Dr. Rivas. - Lab Data Result diagrams: 02/08/21 22:30 02/08/21 22:30 Lab Results 02/08/21 02/08/21 Range/Units 22:30 22:30 WBC 6.0 (3.8-10.6) k/uL RBC 5.04 (4.30-5.90) m/uL Hgb 14.0 (13.0-17.5) gm/dL Hct 42.6 (39.0-53.0) % MCV 84.6 (80.0-100.0) fL MCH 27.8 (25.0-35.0) pg MCHC 32.9 (31.0-37.0) g/dL RDW 12.7 (11.5-15.5) % Plt Count 165 (150-450) k/uL MPV 7.4 Neutrophils % 55 % Lymphocytes % 33 % Monocytes % 7 % Eosinophils % 2 % Basophils % 1 % Neutrophils # 3.3 (1.3-7.7) k/uL Lymphocytes # 2.0 (1.0-4.8) k/uL Monocytes # 0.4 (0-1.0) k/uL Eosinophils # 0.1 (0-0.7) k/uL Basophils # 0.0 (0-0.2) k/uL Sodium 139 (137-145) mmol/L Potassium 4.3 (3.5-5.1) mmol/L Chloride 103 (98-107) mmol/L Carbon Dioxide 24 (22-30) mmol/L Anion Gap 12 mmol/L BUN 22 H (9-20) mg/dL Creatinine 0.69 (0.66-1.25) mg/dL Est GFR (CKD-EPI)AfAm >90 (>60 ml/min/1.73 sqM) Est GFR (CKD-EPI)NonAf >90 (>60 ml/min/1.73 sqM) Glucose 158 H (74-99) mg/dL Calcium 9.2 (8.4-10.2) mg/dL Disposition Clinical Impression: Preseptal cellulitis of right eye Disposition: HOME SELF-CARE Condition: Good Instructions (If sedation given, give patient instructions): Cellulitis (ED) Additional Instructions: Take the Bactrim and amoxicillin twice a day as prescribed and follow-up with ophthalmology, Dr. Wong tomorrow morning. Return to the emergency room with any increased pain, fevers, vision changes, headaches or other worsening or concerning symptoms. Prescriptions: Amoxicillin 875 mg PO Q12HR 7 Days #14 tablet Sulfamethox-Tmp 800-160Mg [Bactrim Ds] 1 each PO Q12HR 7 Days #14 tab Is patient prescribed a controlled substance at d/c from ED?: No Referrals: Jordan Griffin MD [Primary Care Provider] - 1-2 days Teodora Wong MD [STAFF PHYSICIAN] - 1-2 days Time of Disposition: 23:48
[2021-02-08] MEDS ORDERED: VANCOMYCIN IV PER PHARMACY 1 EACH MISC MISCELLANE PRN (22:15)
[2021-02-08] MEDS ORDERED: AMPICILLIN-SULBACTAM 3 GM in SODIUM CHLORIDE 0.9% 100 ML IVPB SCH (22:30)
[2021-02-08] MEDS ORDERED: VANCOMYCIN 1,750 MG in SODIUM CHLORIDE 0.9% 500 ML 500 ML IVPB STA (22:40)
[2021-02-08 22:56] LABS: Basophils % (A) 1 %; Eosinophils # (A) 0.1 k/uL (0-0.7); Eosinophils % (A) 2 %; HCT 42.6 % (39.0-53.0); Lymphocytes % (A) 33 %; MCH 27.8 pg (25.0-35.0); MCHC 32.9 g/dL (31.0-37.0); MCV 84.6 fL (80.0-100.0); Mean Platelet Volume 7.4; Monocytes # (A) 0.4 k/uL (0-1.0); Monocytes % (A) 7 %; Neutrophils # (A) 3.3 k/uL (1.3-7.7); Neutrophils % (A) 55 %; Platelet Count 165 k/uL (150-450); RBC 5.04 m/uL (4.30-5.90); RDW 12.7 % (11.5-15.5)
[2021-02-08] MEDS ORDERED: ACETAMINOPHEN TAB 500 MG TAB PO STA (23:00)
[2021-02-08 23:09] LABS: African American GFR (CKD) >90 (>60 ml/min/1.73 sqM); Anion Gap 12 mmol/L; Blood Urea Nitrogen 22 mg/dL (9-20); Calcium 9.2 mg/dL (8.4-10.2); Carbon Dioxide 24 mmol/L (22-30); Chloride 103 mmol/L (98-107); Glucose 158 mg/dL (74-99); Non-African American GFR(CKD) >90 (>60 ml/min/1.73 sqM); Potassium 4.3 mmol/L (3.5-5.1); Sodium 139 mmol/L (137-145)
--- NOTE | 2021-02-08 23:33 | CT ---
EXAMINATION TYPE: CT orbits w con DATE OF EXAM: 02/08/2021 COMPARISON: 01/19/2017 HISTORY: pain CT DLP: 433.1 mGycm Automated exposure control for dose reduction was used. CONTRAST: Performed with IV Contrast, patient injected with 100 mL of Isovue 300. Images obtained from the mid mandible to the top of the frontal sinuses with IV contrast. Orbital margins are intact. There is no evidence of retro-orbital mass. Nasal bone is intact. There i s right side preseptal soft tissue swelling. There is soft tissue subcutaneous edema anterior to the right maxilla. The maxilla is intact. There is mucous retention cyst measuring 2 cm in the inferior right maxillary sinus. Visualized mandible is intact. Temporomandibular joints are intact. The zygomatic arches appea r normal. There is no drainable fluid collection. Parotid glands are symmetric. IMPRESSION: There is right side preseptal soft tissue swelling inferior to the right orbit. There is also swellin g anterior to the right maxilla. This appears new compared to last exam and consistent with celluliti s.. No drainable fluid collection.. There is mucous retention cysts in the maxillary sinus on the rig ht side which is similar to the old exam.
[2021-02-08] MEDS ORDERED: SULFAMETH-TMP DS STARTER PACK 2 TAB BTL PO STA (23:43)
[2021-02-09] MEDS ORDERED: VANCOMYCIN 1,500 MG in SODIUM CHLORIDE 0.9% 250 ML IVPB SCH (06:00)
== END 2021-02-09 00:50 | disposition home or self-care (01) ==
LOC: EC 19:11
DX: L03.213 Periorbital cellulitis (principal); E11.9 Type 2 diabetes mellitus without complications; I10 Essential (primary) hypertension; E78.5 Hyperlipidemia, unspecified; F32.A Depression, unspecified; Z79.84 Long term (current) use of oral hypoglycemic drugs; Z79.899 Other long term (current) drug therapy
CPT/HCPCS: 36415; 80048; 85025; 87040; 87070; 87205; 70481; 99284; 96365; J0295; Q9967

== ENCOUNTER 2021-07-31 19:26 | Emergency (ER) | payer BC ==
--- NOTE | 2021-07-31 19:58 | ED ---
General Adult HPI - General Stated complaint: COVID+/Antibodies Time Seen by Provider: 07/31/21 19:53 Source: patient, RN notes reviewed - History of Present Illness Initial comments: This is a pleasant 55-year-old male with a history of multiple sclerosis and diabetes. Patient presents to the emergency room today requesting monoclonal antibody. Patient states he started having a dry cough, runny nose, low-grade fever, and sensation shortness breath on Tuesday. Patient denying any chest pain. Patient states his Rhino seemed to stop but he has a cough. Patient tested positive for COVID-19 this morning. Patient is on immunosuppressive therapy for multiple sclerosis. No headache, no fever or chills, no changes in vision or hearing, no sore throat or difficulty with speech, no neck pain, no chest pain or shortness of breath, no abdominal pain, no nausea or vomiting, no changes in urination or bowel movements, no numbness or tingling, no extremity pain, no skin rashes or lesions. - Related Data Home Medications Medication Instructions Recorded Confirmed Dimethyl Fumarate [Tecfidera] 240 mg PO BID 12/25/14 02/08/21 Isosorbide Mononitrate [Isosorbide 30 mg PO DAILY 02/11/20 02/08/21 Mononitrate ER] Albuterol Inhaler [Ventolin Hfa 2 puff INHALATION RT-Q4H PRN 02/08/21 02/08/21 Inhaler] Metoprolol Tartrate [Lopressor] 25 mg PO BID 02/08/21 02/08/21 Pravastatin Sodium [Pravachol] 40 mg PO DAILY 02/08/21 02/08/21 metFORMIN HCL [Glucophage] 1,000 mg PO BID 02/08/21 02/08/21 Previous Rx's Medication Instructions Recorded Aspirin 81 mg PO DAILY chew 02/15/20 Clopidogrel [Plavix] 75 mg PO DAILY #90 tab 02/15/20 Nitroglycerin Sl Tabs [Nitrostat] 0.4 mg SUBLINGUAL Q5M PRN tab 02/15/20 lisinopriL [Zestril] 2.5 mg PO DAILY #30 tab 02/15/20 Amoxicillin 875 mg PO Q12HR 7 Days #14 tablet 02/08/21 Sulfamethox-Tmp 800-160Mg [Bactrim 1 each PO Q12HR 7 Days #14 tab 02/08/21 Ds] Allergies Allergy/AdvReac Type Severity Reaction Status Date / Time No Known Allergies Allergy Verified 07/31/21 19:54 Review of Systems ROS Statement: Those systems with pertinent positive or pertinent negative responses have been documented in the HPI. ROS Other: All systems not noted in ROS Statement are negative. Past Medical History Past Medical History: Cancer, Diabetes Mellitus, Hyperlipidemia, Hypertension Additional Past Medical History / Comment(s): multiple scerlosis, testicular cancer, valley fever, bundle branch block, abdominal bloating and diarrhea History of Any Multi-Drug Resistant Organisms: None Reported Past Surgical History: Hernia Repair Additional Past Surgical History / Comment(s): surgery for testicular cancer. COLONOSCOPY Past Anesthesia/Blood Transfusion Reactions: No Reported Reaction Past Psychological History: Depression Smoking Status: Never smoker Past Alcohol Use History: None Reported Past Drug Use History: None Reported - Past Family History Mother Family Medical History: Diabetes Mellitus General Exam - General Exam Comments Initial Comments: Nontoxic-appearing 55-year-old male in no distress. Patient does not appear to be ill. Continue nerves II through XII grossly intact General appearance: alert, in no apparent distress Head exam: Present: atraumatic, normocephalic, normal inspection Eye exam: Present: normal appearance, PERRL, EOMI. Absent: scleral icterus, conjunctival injection, periorbital swelling ENT exam: Present: normal exam, mucous membranes moist, normal external ear exam. Absent: normal oropharynx, mucous membranes dry Neck exam: Present: normal inspection. Absent: tenderness, meningismus, lymphadenopathy Respiratory exam: Present: normal lung sounds bilaterally. Absent: respiratory distress, wheezes, rales, rhonchi, stridor, chest wall tenderness, accessory muscle use, decreased breath sounds, prolonged expiratory Cardiovascular Exam: Present: regular rate, normal rhythm, normal heart sounds. Absent: systolic murmur, diastolic murmur, rubs, gallop, clicks GI/Abdominal exam: Present: soft, normal bowel sounds. Absent: distended, tenderness, guarding, rebound, rigid Extremities exam: Present: normal inspection, full ROM, normal capillary refill. Absent: tenderness, pedal edema, joint swelling, calf tenderness Back exam: Present: normal inspection Neurological exam: Present: alert, oriented X3, CN II-XII intact Psychiatric exam: Present: normal affect, normal mood Skin exam: Present: warm, dry, intact, normal color. Absent: rash Course Vital Signs 07/31/21 19:54 Temperature 97.5 F L Pulse Rate 88 Respiratory 18 Rate Blood Pressure 146/90 O2 Sat by Pulse 97 Oximetry Medical Decision Making - Medical Decision Making Well-appearing 55-year-old male presents for monoclonal antibody. Note that the patient does have a history of multiple sclerosis on immunosuppressive therapy. I did tell the patient to contact his regular physician by phone Patient was told to return to the ER for any signs or symptoms worsen. Told to return immediately if any other problems arise. All questions answered. Treatment plan discussed. Patient in agreement Every effort has been made to ensure accuracy of this dictation. However, due to the limitations of electronic medical records and dictation devices, errors in charting still occur. Chalk Cutter, Dr. Hagan Disposition Clinical Impression: COVID-19 Disposition: HOME SELF-CARE Instructions (If sedation given, give patient instructions): COVID-19 (Coronavirus Disease 2019) (ED) Additional Instructions: SELF QUARANTINE DISCHARGE: As you are at risk for symptoms due to coronavirus, please stay home and stay away from others as much as possible. Please maintain social distance of 6 feet if possible. You should not return to work until at least 3 days (72 hours) have passed since recovery of symptoms. This defined as resolution of fever without the use of fever reducing medicines and improvement in respiratory symptoms (e.g,, cough, shortness of breath) Isolation can end at least 5 days after symptom onset and after fever ends for 24 hours (without the use of fever-reducing medication) and symptoms are improving, if these people can continue to properly wear a well-fitted mask around others for 5 more days after the 5-day isolation period. If you're still having symptoms at the end of 5 day period, isolate for an additional 5 days. More information about what to do if you are sick can be found on the CDC website at h ttps://www.cdc.gov/coronavirus/2019-ncov/mj-eqg-ujw-sick/tniaj-vgkx-phzr.html Expect the symptoms to last for 7-14 days from onset. Use acetaminophen (Tylenol) as needed for discomfort. You can take a maximum of 1 gram every 6 hours for discomfort, with your total dose in 24 hours not exceeding 4 grams. Be sure to maintain hydration. Drink continuous water and/or items high in vitamin C, such as orange juice and/or lemonade. Unless you have high blood pressure, you may consider Sudafed (which is [id number]) for nasal congestion. I would suggest that a short acting Sudafed rather than the 24 hour Sudafed. For a cough you may take Mucinex or Robitussin. Also consider the use of Vicks Vapor Rub or your chest when you sleep. Use a humidifier that is cleaned frequently, in the bedroom at night. For Nausea /Vomiting/Diarrhea associated with your Illness: o Small frequent sips of room temperature liquids. o Diet: [place] Foods - If you are still experiencing discomfort and/or nausea please slowly advancing your diet using the BRAT Diet = bananas, rice, apples/apple sauce, toast. o With diarrhea avoid any dairy for 48 hours after symptoms resolved. o Continue with activity as tolerated. If your symptoms do get worse and you believe that the upper respiratory infection has developed into something else, such as pneumonia or severe dehydration, please return to the emergency department or follow-up with your primary care. But expect to be symptomatic for the days as indicated above Is patient prescribed a controlled substance at d/c from ED?: No Referrals: Jordan Griffin MD [Primary Care Provider] - 1-2 days Time of Disposition: 21:24
[2021-07-31 19:59] VITALS: TEMP 97.5
[2021-07-31] MEDS ORDERED: BEBTELOVIMAB (EUA) 175 MG/2 ML VIAL IV ONE (20:30)
[2021-07-31 21:32] VITALS: RESP 16
[2021-07-31 22:22] VITALS: BP 148/76; PULSE 72
== END 2021-07-31 22:22 | disposition home or self-care (01) ==
LOC: EC 19:26
DX: U07.1 COVID-19 (principal); I10 Essential (primary) hypertension; E78.5 Hyperlipidemia, unspecified; E11.9 Type 2 diabetes mellitus without complications; Z79.899 Other long term (current) drug therapy; Z79.84 Long term (current) use of oral hypoglycemic drugs
CPT/HCPCS: 99283; Q0222

== ENCOUNTER 2021-10-30 13:28 | Emergency (ER) | payer BC ==
[2021-10-30 13:50] VITALS: TEMP 98.8
--- NOTE | 2021-10-30 14:10 | XR ---
EXAMINATION TYPE: XR chest 2V DATE OF EXAM: 10/30/2021 COMPARISON: NONE HISTORY: Chest pain TECHNIQUE: Frontal and lateral views of the chest are obtained. FINDINGS: There is no focal air space opacity. No evidence for pneumothorax. No pleural effusion. The cardiac silhouette size is within normal limits. The osseous structures are grossly intact. IMPRESSION: 1. No acute cardiopulmonary process.
--- NOTE | 2021-10-30 14:14 | ED ---
General Adult HPI - General Chief complaint: Shortness of Breath Stated complaint: MISAEL Time Seen by Provider: 10/30/21 13:42 Source: patient, RN notes reviewed, old records reviewed Limitations: no limitations - History of Present Illness Initial comments: 56-year-old male with dyspnea. This is been ongoing for some time. Patient states this is normally exertional but today he developed dyspnea at rest. No cough or fever. No chest pain. He does have history of CAD status post stenting about one month ago. He's had 2 total stents placed in the past and is currently on antiplatelet medication. He's been compliant with his medications. No chest pain. No fever. No leg swelling. - Related Data Home Medications Medication Instructions Recorded Confirmed Dimethyl Fumarate [Tecfidera] 240 mg PO BID 12/25/14 10/30/21 Isosorbide Mononitrate [Isosorbide 30 mg PO DAILY 02/11/20 10/30/21 Mononitrate ER] Atorvastatin [Lipitor] 80 mg PO DAILY 09/30/21 10/30/21 Semaglutide [Rybelsus] 7 mg PO DAILY 10/01/21 10/30/21 Eugulozp-Yvijamvan-Ikjjauxr 1 drop LEFT EYE QID 10/30/21 10/30/21 [Maxitrol Ophth Susp] metFORMIN HCL 1,000 mg PO BID 10/30/21 10/30/21 Previous Rx's Medication Instructions Recorded Aspirin 81 mg PO DAILY chew 02/15/20 Clopidogrel [Plavix] 75 mg PO DAILY #90 tab 02/15/20 lisinopriL [Zestril] 2.5 mg PO DAILY #30 tab 02/15/20 Allergies Allergy/AdvReac Type Severity Reaction Status Date / Time No Known Allergies Allergy Verified 10/30/21 16:11 Review of Systems ROS Statement: Those systems with pertinent positive or pertinent negative responses have been documented in the HPI. ROS Other: All systems not noted in ROS Statement are negative. Past Medical History Past Medical History: Cancer, Diabetes Mellitus, Hyperlipidemia, Hypertension Additional Past Medical History / Comment(s): multiple scerlosis, testicular cancer, valley fever, bundle branch block, abdominal bloating and diarrhea History of Any Multi-Drug Resistant Organisms: None Reported Past Surgical History: Hernia Repair Additional Past Surgical History / Comment(s): surgery for testicular cancer. COLONOSCOPY Past Anesthesia/Blood Transfusion Reactions: No Reported Reaction Past Psychological History: Depression Smoking Status: Never smoker Past Alcohol Use History: None Reported Past Drug Use History: None Reported - Past Family History Mother Family Medical History: Diabetes Mellitus General Exam Limitations: no limitations General appearance: alert, in no apparent distress Head exam: Present: atraumatic, normocephalic Eye exam: Present: normal appearance, PERRL ENT exam: Present: normal exam Neck exam: Present: normal inspection. Absent: tenderness, meningismus Respiratory exam: Present: normal lung sounds bilaterally. Absent: respiratory distress, wheezes Cardiovascular Exam: Present: regular rate, normal rhythm GI/Abdominal exam: Present: soft. Absent: distended, tenderness, guarding Extremities exam: Present: normal inspection, normal capillary refill. Absent: pedal edema Neurological exam: Present: alert, oriented X3, CN II-XII intact. Absent: motor sensory deficit Psychiatric exam: Present: normal affect, normal mood Skin exam: Present: warm, dry, intact. Absent: cyanosis, diaphoretic Course Vital Signs 10/30/21 10/30/21 10/30/21 13:29 13:49 13:50 Temperature 97.9 F 98.8 F Pulse Rate 129 H 98 Respiratory 30 H 20 20 Rate Blood Pressure 125/78 139/84 O2 Sat by Pulse 100 99 Oximetry 10/30/21 15:35 Temperature Pulse Rate 94 Respiratory 18 Rate Blood Pressure 111/77 O2 Sat by Pulse 96 Oximetry EKG Findings - EKG Comments: EKG Findings:: EKG: Sinus rhythm, left bundle branch block rate 97, TX interval 188, QRS duration 137, know left bundle Medical Decision Making - Medical Decision Making 56 yo male with dyspnea. Ongoing for 6 months but worse today. No chest pain. No lower extremity edema. EKG is left bundle branch block with history of left bundle-branch block, sinus rhythm, chest x-ray clear. Normal CBC, normal CMP, negative troponin, negative BNP. CT angiography negative for effusion or pulmonary embolism. At this point I feel the patient should follow-up with pulmonology. He's given an option of observation with cardiology and pulmonolo gy consult versus home with outpatient follow-up. He prefers outpatient follow- up at this time. Strict return parameters are discussed. - Lab Data Result diagrams: 10/30/21 14:12 10/30/21 14:12 Lab Results 10/30/21 10/30/21 10/30/21 Range/Units 13:55 14:12 14:12 WBC 8.1 (3.8-10.6) k/uL RBC 5.39 (4.30-5.90) m/uL Hgb 14.7 (13.0-17.5) gm/dL Hct 46.8 (39.0-53.0) % MCV 86.8 (80.0-100.0) fL MCH 27.3 (25.0-35.0) pg MCHC 31.5 (31.0-37.0) g/dL RDW 13.3 (11.5-15.5) % Plt Count 153 (150-450) k/uL MPV 7.1 Neutrophils % 76 % Lymphocytes % 15 % Monocytes % 6 % Eosinophils % 1 % Basophils % 1 % Neutrophils # 6.1 (1.3-7.7) k/uL Lymphocytes # 1.2 (1.0-4.8) k/uL Monocytes # 0.5 (0-1.0) k/uL Eosinophils # 0.1 (0-0.7) k/uL Basophils # 0.1 (0-0.2) k/uL PT 10.5 (9.0-12.0) sec INR 1.0 (<1.2) APTT 24.1 (22.0-30.0) sec D-Dimer 0.42 (<0.60) mg/L FEU Sodium (137-145) mmol/L Potassium (3.5-5.1) mmol/L Chloride (98-107) mmol/L Carbon Dioxide (22-30) mmol/L Anion Gap mmol/L BUN (9-20) mg/dL Creatinine (0.66-1.25) mg/dL Est GFR (CKD-EPI)AfAm (>60 ml/min/1.73 sqM) Est GFR (CKD-EPI)NonAf (>60 ml/min/1.73 sqM) Glucose (74-99) mg/dL Plasma Lactic Acid Ross (0.7-2.0) mmol/L Calcium (8.4-10.2) mg/dL Total Bilirubin (0.2-1.3) mg/dL AST (17-59) U/L ALT (4-49) U/L Alkaline Phosphatase (38-126) U/L Troponin I (0.000-0.034) ng/mL NT-Pro-B Natriuret Pep pg/mL Total Protein (6.3-8.2) g/dL Albumin (3.5-5.0) g/dL Coronavirus (PCR) Not Detected (Not Detectd) 10/30/21 10/30/21 10/30/21 Range/Units 14:12 14:12 14:12 WBC (3.8-10.6) k/uL RBC (4.30-5.90) m/uL Hgb (13.0-17.5) gm/dL Hct (39.0-53.0) % MCV (80.0-100.0) fL MCH (25.0-35.0) pg MCHC (31.0-37.0) g/dL RDW (11.5-15.5) % Plt Count (150-450) k/uL MPV Neutrophils % % Lymphocytes % % Monocytes % % Eosinophils % % Basophils % % Neutrophils # (1.3-7.7) k/uL Lymphocytes # (1.0-4.8) k/uL Monocytes # (0-1.0) k/uL Eosinophils # (0-0.7) k/uL Basophils # (0-0.2) k/uL PT (9.0-12.0) sec INR (<1.2) APTT (22.0-30.0) sec D-Dimer (<0.60) mg/L FEU Sodium 138 (137-145) mmol/L Potassium 4.3 (3.5-5.1) mmol/L Chloride 100 (98-107) mmol/L Carbon Dioxide 20 L (22-30) mmol/L Anion Gap 18 mmol/L BUN 16 (9-20) mg/dL Creatinine 0.99 (0.66-1.25) mg/dL Est GFR (CKD-EPI)AfAm >90 (>60 ml/min/1.73 sqM) Est GFR (CKD-EPI)NonAf 85 (>60 ml/min/1.73 sqM) Glucose 94 (74-99) mg/dL Plasma Lactic Acid Ross 1.0 (0.7-2.0) mmol/L Calcium 9.2 (8.4-10.2) mg/dL Total Bilirubin 1.2 (0.2-1.3) mg/dL AST 30 (17-59) U/L ALT 26 (4-49) U/L Alkaline Phosphatase 110 (38-126) U/L Troponin I <0.012 (0.000-0.034) ng/mL NT-Pro-B Natriuret Pep pg/mL Total Protein 7.0 (6.3-8.2) g/dL Albumin 4.9 (3.5-5.0) g/dL Coronavirus (PCR) (Not Detectd) 10/30/21 Range/Units 14:12 WBC (3.8-10.6) k/uL RBC (4.30-5.90) m/uL Hgb (13.0-17.5) gm/dL Hct (39.0-53.0) % MCV (80.0-100.0) fL MCH (25.0-35.0) pg MCHC (31.0-37.0) g/dL RDW (11.5-15.5) % Plt Count (150-450) k/uL MPV Neutrophils % % Lymphocytes % % Monocytes % % Eosinophils % % Basophils % % Neutrophils # (1.3-7.7) k/uL Lymphocytes # (1.0-4.8) k/uL Monocytes # (0-1.0) k/uL Eosinophils # (0-0.7) k/uL Basophils # (0-0.2) k/uL PT (9.0-12.0) sec INR (<1.2) APTT (22.0-30.0) sec D-Dimer (<0.60) mg/L FEU Sodium (137-145) mmol/L Potassium (3.5-5.1) mmol/L Chloride (98-107) mmol/L Carbon Dioxide (22-30) mmol/L Anion Gap mmol/L BUN (9-20) mg/dL Creatinine (0.66-1.25) mg/dL Est GFR (CKD-EPI)AfAm (>60 ml/min/1.73 sqM) Est GFR (CKD-EPI)NonAf (>60 ml/min/1.73 sqM) Glucose (74-99) mg/dL Plasma Lactic Acid Ross (0.7-2.0) mmol/L Calcium (8.4-10.2) mg/dL Total Bilirubin (0.2-1.3) mg/dL AST (17-59) U/L ALT (4-49) U/L Alkaline Phosphatase (38-126) U/L Troponin I (0.000-0.034) ng/mL NT-Pro-B Natriuret Pep 88 pg/mL Total Protein (6.3-8.2) g/dL Albumin (3.5-5.0) g/dL Coronavirus (PCR) (Not Detectd) Disposition Clinical Impression: Dyspnea Disposition: HOME SELF-CARE Condition: Fair Instructions (If sedation given, give patient instructions): Dyspnea (ED) Is patient prescribed a controlled substance at d/c from ED?: No Referrals: Jordan Griffin MD [Primary Care Provider] - 1-2 days Chance Gayle MD [STAFF PHYSICIAN] - 1-2 days Time of Disposition: 16:39
[2021-10-30 14:24] LABS: Basophils # (A) 0.1 k/uL (0-0.2); Basophils % (A) 1 %; Eosinophils # (A) 0.1 k/uL (0-0.7); Eosinophils % (A) 1 %; HCT 46.8 % (39.0-53.0); HGB 14.7 gm/dL (13.0-17.5); Lymphocytes # (A) 1.2 k/uL (1.0-4.8); Lymphocytes % (A) 15 %; MCH 27.3 pg (25.0-35.0); MCHC 31.5 g/dL (31.0-37.0); MCV 86.8 fL (80.0-100.0); Mean Platelet Volume 7.1; Monocytes # (A) 0.5 k/uL (0-1.0); Monocytes % (A) 6 %; Neutrophils # (A) 6.1 k/uL (1.3-7.7); Neutrophils % (A) 76 %; Platelet Count 153 k/uL (150-450); RBC 5.39 m/uL (4.30-5.90); RDW 13.3 % (11.5-15.5); WBC 8.1 k/uL (3.8-10.6)
[2021-10-30 14:33] LABS: ALT 26 U/L (4-49); AST 30 U/L (17-59); African American GFR (CKD) >90 (>60 ml/min/1.73 sqM); Albumin 4.9 g/dL (3.5-5.0); Alkaline Phosphatase 110 U/L (38-126); Anion Gap 18 mmol/L; Blood Urea Nitrogen 16 mg/dL (9-20); Calcium 9.2 mg/dL (8.4-10.2); Carbon Dioxide 20 mmol/L (22-30); Chloride 100 mmol/L (98-107); Glucose 94 mg/dL (74-99); Non-African American GFR(CKD) 85 (>60 ml/min/1.73 sqM); Potassium 4.3 mmol/L (3.5-5.1); Sodium 138 mmol/L (137-145); Total Bilirubin 1.2 mg/dL (0.2-1.3)
[2021-10-30 14:58] LABS: Partial Thromboplastin Time 24.1 sec (22.0-30.0); Prothrombin Time 10.5 sec (9.0-12.0)
[2021-10-30 15:38] VITALS: RESP 18
--- NOTE | 2021-10-30 16:36 | CT ---
EXAMINATION TYPE: CT angio chest DATE OF EXAM: 10/30/2021 COMPARISON: None HISTORY: MISAEL. Hx MS CT DLP: 319.2 mGycm CONTRAST: CT chest with contrast and 3D reconstruction with MIP imaging is performed with IV Contrast, patient injected with 100 mL of Isovue 370. Contrast-enhanced CT of the chest was performed through the course of the pulmonary arteries with gallo g and mediastinal window settings submitted. 3D reconstruction with MIP imaging was also performed. PULMONARY ARTERIES: The pulmonary arteries and their major tributaries are patent. I do not see chantel dence for sizable filling defect to suggest pulmonary embolic process. LUNGS: The lungs are clear and free of infiltrate. No evidence for atelectasis. No pulmonary nodule or mass is detected. No pleural effusion. MEDIASTINUM: Thoracic aorta is of normal caliber,however, evaluation is limited given timing of the contrast bolus. If there is concern for thoracic aortic pathology consider KAYLA. Correlate clinicall y . The heart is not enlarged. No evidence for mediastinal mass. No mediastinal lymph nodes greater than 1cm. HILAR STRUCTURES: No evidence for mass. No hilar lymph nodes greater than 1 cm. UPPER ABDOMEN: No significant abnormality is seen. IMPRESSION: 1. No evidence for Pulmonary embolism at this time.
[2021-10-30 18:51] VITALS: BP 132/78; PULSE 80
== END 2021-10-30 18:51 | disposition home or self-care (01) ==
LOC: EC 13:28
DX: R06.00 Dyspnea, unspecified (principal); E11.9 Type 2 diabetes mellitus without complications; E78.5 Hyperlipidemia, unspecified; I10 Essential (primary) hypertension; F32.A Depression, unspecified; Z79.84 Long term (current) use of oral hypoglycemic drugs; Z79.82 Long term (current) use of aspirin; Z79.899 Other long term (current) drug therapy; Z20.822 Contact with and (suspected) exposure to COVID-19
CPT/HCPCS: 36415; 93005; 85379; 83880; 80053; 83605; 84484; 85025; 85610; 85730; 87635; 71046; 71275; 99285; Q9967

== ENCOUNTER 2022-05-05 20:08 | Emergency (ER) | payer BC ==
--- NOTE | 2022-05-05 20:16 | ED ---
ENT HPI - General Stated complaint: sinus Time Seen by Provider: 05/05/22 20:15 Source: RN notes reviewed - History of Present Illness Initial comments: Patient is a 56 -year-old male who presents to the emergency department for si nus issues. Patient reports congestion with facial pain for the past 3 days. He does have some pain in his nose as well as his upper gums. He denies injury. Denies fevers, chills, cough, trouble breathing. Patient had a headache yesterday which has resolved. 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 No chest pain. - Related Data Home Medications Medication Instructions Recorded Confirmed Dimethyl Fumarate [Tecfidera] 240 mg PO BID 12/25/14 10/30/21 Isosorbide Mononitrate [Isosorbide 30 mg PO DAILY 02/11/20 10/30/21 Mononitrate ER] Atorvastatin [Lipitor] 80 mg PO DAILY 09/30/21 10/30/21 Semaglutide [Rybelsus] 7 mg PO DAILY 10/01/21 10/30/21 Kggjycre-Hqcvubsjf-Kjjprwuv 1 drop LEFT EYE QID 10/30/21 10/30/21 [Maxitrol Ophth Susp] metFORMIN HCL 1,000 mg PO BID 10/30/21 10/30/21 Previous Rx's Medication Instructions Recorded Aspirin 81 mg PO DAILY chew 02/15/20 Clopidogrel [Plavix] 75 mg PO DAILY #90 tab 02/15/20 lisinopriL [Zestril] 2.5 mg PO DAILY #30 tab 02/15/20 Amoxic-Pot Clav 875-125Mg 1 tab PO Q12HR 10 Days #20 tab 05/05/22 [Augmentin 875-125] Ibuprofen [Motrin] 800 mg PO Q8HR PRN #30 tab 05/05/22 Loratadine [Claritin] 10 mg PO DAILY #7 tablet 05/05/22 Allergies Allergy/AdvReac Type Severity Reaction Status Date / Time No Known Allergies Allergy Verified 05/05/22 20:22 Review of Systems ROS Statement: Those systems with pertinent positive or pertinent negative responses have been documented in the HPI. ROS Other: All systems not noted in ROS Statement are negative. Past Medical History Past Medical History: Cancer, Diabetes Mellitus, Hyperlipidemia, Hypertension Additional Past Medical History / Comment(s): multiple scerlosis, testicular cancer, valley fever, bundle branch block, abdominal bloating and diarrhea History of Any Multi-Drug Resistant Organisms: None Reported Past Surgical History: Hernia Repair Additional Past Surgical History / Comment(s): surgery for testicular cancer. COLONOSCOPY Past Anesthesia/Blood Transfusion Reactions: No Reported Reaction Past Psychological History: Depression Smoking Status: Never smoker Past Alcohol Use History: None Reported Past Drug Use History: None Reported - Past Family History Mother Family Medical History: Diabetes Mellitus General Exam - General Exam Comments Initial Comments: Visual Physical Exam Vital signs reviewed General: Well-appearing, nontoxic, no acute distress. Head: Normocephalic, atraumatic Eyes: PERRLA, EOMI ENT: Airway patent Chest: Nonlabored breathing Skin: No visual rash, normal skin tone Neuro: Alert and oriented 3 Musculoskeletal: No gross abnormalities General appearance: alert, in no apparent distress Head exam: Present: atraumatic, normocephalic, normal inspection ENT exam: Present: normal oropharynx, TM's normal bilaterally, other (nasal congestion ) Respiratory exam: Present: normal lung sounds bilaterally. Absent: respiratory distress, wheezes, rales, rhonchi, stridor Cardiovascular Exam: Present: regular rate, normal rhythm, normal heart sounds. Absent: systolic murmur, diastolic murmur, rubs, gallop, clicks Psychiatric exam: Present: normal affect, normal mood Skin exam: Present: warm, dry, intact, normal color. Absent: rash Course Vital Signs 05/05/22 20:18 Temperature 98.2 F Pulse Rate 88 Respiratory 20 Rate Blood Pressure 179/89 O2 Sat by Pulse 99 Oximetry Medical Decision Making - Medical Decision Making Was pt. sent in by a medical professional or institution (, PA, SCRAP HANDLER, urgent care, hospital, or skilled nursing...) When possible be specific @ -No Did you speak to anyone other than the patient for history (EMS, parent, family, police, friend...)? What history was obtained from this source @ -No Did you review nursing and triage notes (agree or disagree)? Why? @ -I reviewed and agree with nursing and triage notes Were old charts reviewed (outside hosp., previous admission, EMS record, old EKG, old radiological studies, urgent care reports/EKG's, skilled nursing records)? Report findings @ -No old charts were reviewed Differential Diagnosis (chest pain, altered mental status, abdominal pain women, abdominal pain men, vaginal bleeding, weakness, fever, dyspnea, syncope, headache, dizziness, GI bleed, back pain, seizure, CVA, palpatations, mental health)? @ -URI, sinusitus,strep pharyngitis, viral pharyngitis, pneumonia, bronchitis- this list is not meant to be all-inclusive EKG interpreted by me (3pts min.). @ -As above X-rays interpreted by me (1pt min.). @ -None done CT interpreted by me (1pt min.). @ -None done U/S interpreted by me (1pt. min.). @ -None done What testing was considered but not performed or refused? (CT, X-rays, U/S, labs)? Why? @ -None What meds were considered but not given or refused? Why? @ -None Did you discuss the management of the patient with other professionals (professionals i.e. , PA, SCRAP HANDLER, lab, RT, psych nurse, protective services social worker, sports lawyer, teacher, chief human resources officer, case aide)? Give summary @ -No Was smoking cessation discussed for >3mins.? @ -No Was critical care preformed (if so, how long)? @ -No Were there social determinants of health that impacted care today? How? (Homelessness, low income, unemployed, alcoholism, drug addiction, transportation, low edu. Level, literacy, decrease access to med. care, usp, rehab)? @ -No Was there de-escalation of care discussed even if they declined (Discuss DNR or withdrawal of care, Hospice)? DNR status @ -No What co-morbidities impacted this encounter? (DM, HTN, Smoking, COPD, CAD, Cancer, CVA, ARF, Chemo, Hep., AIDS, mental health diagnosis, sleep apnea, morbid obesity)? @ -None] Was patient admitted / discharged? Hospital course, mention meds given and route, prescriptions, significant lab abnormalities, going to OR and other pertinent info. @ -Patient presenting with sinusitis for 3 days. Afebrile. He does have m axillary tenderness and dryness in his nose. COVID-19, RSV, influenza not detected. We discussed sinusitis detail. This is likely viral origin. Patient will be given antibiotic course which is recommended to only take if no improvement of symptoms after one week. Patient will be discharged with symptomatic management. He verbalizes understanding. Undiagnosed new problem with uncertain prognosis? @ -[No] Drug Therapy requiring intensive monitoring for toxicity (Heparin, Nitro, Insulin, Cardizem)? @ -[No] Were any procedures done? @ -[No] Diagnosis/symptom? @ -acute sinusitis Acute, or Chronic, or Acute on Chronic? @ -acute Uncomplicated (without systemic symptoms) or Complicated (systemic symptoms)? @ -[default] Side effects of treatment? @ -uncomplicated Exacerbation, Progression, or Severe Exacerbation? @ -[No] Poses a threat to life or bodily function? How? (Chest pain, USA, [place], pneumonia, PE, COPD, DKA, ARF, appy, cholecystitis, CVA, Diverticulitis, Homicidal, Suicidal, threat to staff... and all critical care pts) @ -[No] Dr. Hagan is my attending - Lab Data Lab Results 05/05/22 Range/Units 20:23 Influenza Type A (PCR) Not Detected (Not Detectd) Influenza Type B (PCR) Not Detected (Not Detectd) RSV (PCR) Not Detected (Not Detectd) SARS-CoV-2 (PCR) Not Detected (Not Detectd) Disposition Clinical Impression: Sinusitis Disposition: HOME SELF-CARE Condition: Good Instructions (If sedation given, give patient instructions): Sinusitis (ED) Additional Instructions: Continue nasal spray. Take Claritin and Motrin as directed. Use of over the counter nasal saline will help with dryness. Take antibiotic if no improvement of symptoms in 7 days (10 days from symptom onset). Follow up with PCP in 1-2 days. Return to the ED if you experience new, worsening, or concerning symptoms. Prescriptions: Amoxic-Pot Clav 875-125Mg [Augmentin 875-125] 1 tab PO Q12HR 10 Days #20 tab Loratadine [Claritin] 10 mg PO DAILY #7 tablet Ibuprofen [Motrin] 800 mg PO Q8HR PRN #30 tab PRN Reason: Pain Is patient prescribed a controlled substance at d/c from ED?: No Referrals: Jordan Griffin MD [Primary Care Provider] - 1-2 days
[2022-05-05 20:22] VITALS: BP 179/89; PULSE 88; RESP 20; TEMP 98.2
[2022-05-05] MEDS ORDERED: LORATADINE 10 MG TAB PO STA (22:56)
[2022-05-05] MEDS ORDERED: KETOROLAC 15 MG/ML 1 ML VIAL IM STA (22:56)
[2022-05-05] MEDS ORDERED: FLUTICASONE 50MCG/SPRAY NASAL 16GM EA NOSTRIL ONE (23:00)
== END 2022-05-05 23:41 | disposition home or self-care (01) ==
LOC: EC 20:08
DX: J32.9 Chronic sinusitis, unspecified (principal); E11.9 Type 2 diabetes mellitus without complications; I10 Essential (primary) hypertension; F32.A Depression, unspecified; E78.5 Hyperlipidemia, unspecified; Z79.84 Long term (current) use of oral hypoglycemic drugs; Z79.899 Other long term (current) drug therapy; Z20.822 Contact with and (suspected) exposure to COVID-19
CPT/HCPCS: 87636; 99283; 96372; J1885

== ENCOUNTER 2022-05-08 13:23 | Emergency (ER) | payer BC ==
[2022-05-08 13:27] VITALS: TEMP 98
[2022-05-08] MEDS ORDERED: cefTRIAXone IN SWFI 1,000 MG/10 ML SYRINGE IVP STA (13:50)
--- NOTE | 2022-05-08 13:56 | ED ---
ENT HPI - General Chief complaint: ENT Stated complaint: revisit-sinus infection Time Seen by Provider: 05/08/22 13:31 Source: patient, RN notes reviewed Mode of arrival: ambulatory Limitations: no limitations - History of Present Illness Initial comments: Patient is a 56-year-old male presenting to the emergency room with complaints of sinus pressure and pain ongoing for approximately 4 days with worsening of symptoms. He was seen here in the emergency room on May 05 and tested negative for covert, RSV and influenza. He was given a prescription for antihistamine, nasal spray, anti-inflammatories and Augmentin which he has been on for just over 24 hours. He reports while taking the medication he has had worsening of symptoms with nasal pain and swelling and erythema near which was not present on initial evaluation on the . He denies any known sick exposure but does work at a [employer]. He denies any headache not directly related to sinus pressure. He is reporting ear fullness at times without dizziness. He has generalized malaise but denies any weakness, fevers or chills. He has a past medical history significant for diabetes, testicular cancer, multiple sclerosis, hypertension and hyperlipidemia. - Related Data Home Medications Medication Instructions Recorded Confirmed Dimethyl Fumarate [Tecfidera] 240 mg PO BID 12/25/14 10/30/21 Isosorbide Mononitrate [Isosorbide 30 mg PO DAILY 02/11/20 10/30/21 Mononitrate ER] Atorvastatin [Lipitor] 80 mg PO DAILY 09/30/21 10/30/21 Semaglutide [Rybelsus] 7 mg PO DAILY 10/01/21 10/30/21 Srrhnyzq-Ztddbicsb-Sktyiboe 1 drop LEFT EYE QID 10/30/21 10/30/21 [Maxitrol Ophth Susp] metFORMIN HCL 1,000 mg PO BID 10/30/21 10/30/21 Previous Rx's Medication Instructions Recorded Aspirin 81 mg PO DAILY chew 02/15/20 Clopidogrel [Plavix] 75 mg PO DAILY #90 tab 02/15/20 lisinopriL [Zestril] 2.5 mg PO DAILY #30 tab 02/15/20 Amoxic-Pot Clav 875-125Mg 1 tab PO Q12HR 10 Days #20 tab 05/05/22 [Augmentin 875-125] Ibuprofen [Motrin] 800 mg PO Q8HR PRN #30 tab 05/05/22 Loratadine [Claritin] 10 mg PO DAILY #7 tablet 05/05/22 Allergies Allergy/AdvReac Type Severity Reaction Status Date / Time No Known Allergies Allergy Verified 05/05/22 20:22 Review of Systems ROS Statement: Those systems with pertinent positive or pertinent negative responses have been documented in the HPI. ROS Other: All systems not noted in ROS Statement are negative. Past Medical History Past Medical History: Cancer, Diabetes Mellitus, Hyperlipidemia, Hypertension Additional Past Medical History / Comment(s): multiple scerlosis, testicular cancer, valley fever, bundle branch block, abdominal bloating and diarrhea History of Any Multi-Drug Resistant Organisms: None Reported Past Surgical History: Hernia Repair Additional Past Surgical History / Comment(s): surgery for testicular cancer. COLONOSCOPY Past Anesthesia/Blood Transfusion Reactions: No Reported Reaction Past Psychological History: Depression Smoking Status: Never smoker Past Alcohol Use History: None Reported Past Drug Use History: None Reported - Past Family History Mother Family Medical History: Diabetes Mellitus General Exam Limitations: no limitations General appearance: alert, in no apparent distress Head exam: Present: atraumatic, normocephalic, normal inspection Eye exam: Present: normal appearance, PERRL, EOMI. Absent: scleral icterus, conjunctival injection, nystagmus, periorbital swelling ENT exam: Present: mucous membranes moist, normal external ear exam, other (distal portion of nose with diffuse erythema, tenderness and internal nasal septum swelling with deviation leftward.) Neck exam: Present: normal inspection, full ROM, lymphadenopathy (shotty) Respiratory exam: Present: normal lung sounds bilaterally. Absent: respiratory distress, wheezes, rales, rhonchi, stridor Cardiovascular Exam: Present: regular rate, normal rhythm, normal heart sounds. Absent: systolic murmur, diastolic murmur, rubs, gallop, clicks GI/Abdominal exam: Present: soft, normal bowel sounds. Absent: distended, tenderness, guarding, rebound, rigid Extremities exam: Present: normal inspection. Absent: pedal edema, joint swelling Back exam: Present: normal inspection Neurological exam: Present: alert, oriented X3, CN II-XII intact Psychiatric exam: Present: normal affect, normal mood Skin exam: Present: other (erythema as above otherwise clean dry and intact.) Course Vital Signs 05/08/22 05/08/22 13:24 15:24 Temperature 98 F Pulse Rate 100 97 Respiratory 20 18 Rate Blood Pressure 114/75 118/75 O2 Sat by Pulse 97 99 Oximetry Medical Decision Making - Medical Decision Making Was pt. sent in by a medical professional or institution (ARELIS Lawler, ANESTHESIOLOGY FELLOW, urgent care, hospital, or [facility]...) When possible be specific @ -No Did you speak to anyone other than the patient for history (EMS, parent, family, police, friend...)? What history was obtained from this source @ -No Did you review nursing and triage notes (agree or disagree)? Why? @ -I reviewed and agree with nursing and triage notes Were old charts reviewed (outside hosp., previous admission, EMS record, old EKG, old radiological studies, urgent care reports/EKG's, [facility] records)? Report findings @ -Yes, laboratory studies reviewed from emergency room visit 05/05/2021 along with emergency room report. Differential Diagnosis (chest pain, altered mental status, abdominal pain women, abdominal pain men, vaginal bleeding, weakness, fever, dyspnea, syncope, h eadache, dizziness, GI bleed, back pain, seizure, CVA, palpatations, mental health, musculoskeletal)? @ -Differential Nasal Swelling: Acute sinusitis, cellulitis, nasal abscess, allergic reaction to medication, viral URI, pericarditis, otitis, sinusitis, peritonsillar Abscess, r etropharyngeal Abscess, epiglottitis, cavernous sinus thrombosis, this is not meant to be an all-inclusive list. EKG interpreted by me (3pts min.). @ -None done X-rays interpreted by me (1pt min.). @ -None done CT interpreted by me (1pt min.). @ -CT sinuses without contrast: Pansinusitis, no intraorbital or nasal cavity abnormalities. U/S interpreted by me (1pt. min.). @ -None done What testing was considered but not performed or refused? (CT, X-rays, U/S, labs)? Why? @ -None What meds were considered but not given or refused? Why? @ -None Did you discuss the management of the patient with other professionals (professionals i.e. ARELIS Lawler, ANESTHESIOLOGY FELLOW, lab, RT, psych nurse, social services designee, nurse clinician, teacher, property disposal officer, major case detective)? Give summary @ -No Was smoking cessation discussed for >3mins.? @ -No Was critical care preformed (if so, how long)? @ -No Were there social determinants of health that impacted care today? How? (Homelessness, low income, unemployed, alcoholism, drug addiction, transportation, low edu. Level, literacy, decrease access to med. care, alf, rehab)? @ -No Was there de-escalation of care discussed even if they declined (Discuss DNR or withdrawal of care, Hospice)? DNR status @ -No What co-morbidities impacted this encounter? (DM, HTN, Smoking, COPD, CAD, Cancer, CVA, ARF, Chemo, Hep., AIDS, mental health diagnosis, sleep apnea, morbid obesity)? @ -Multiple sclerosis on immune suppressant therapy, diabetes Was patient admitted / discharged? Hospital course, mention meds given and route, prescriptions, significant lab abnormalities, going to OR and other pertinent info. @ -56-year-old male presented to the emergency room with complaints of sinus pressure and development of nasal swelling and redness despite treatment for sinusitis. High-risk for complications from immunocompromise status due to medications for multiple sclerosis and diabetic status. Will obtain CBC, CMP, blood cultures and lactic acid. Will obtain computed tomography scan of sinuses and give 1 g of Rocephin now. Will monitor closely. Tolerated Rocephin well. CBC demonstrates to be WBC 11.8, neutrophils 10.1, lymphocytes low 0.6 CMP is elevated carbon dioxide at 32 glucose elevated 230 otherwise no abnormalities. Computed tomography scan of the sinuses reveal retention cyst right maxillary sinus no obvious nasal abscess or tissue inflammation. No indication for further laboratory studies her diagnostic imaging. Will continue current antibiotic therapy along with anti-inflammatories and antihistamine as previously prescribed. Questions and concerns answered. Return parameters to the emergency room discussed. Will discharge home on previously prescribed antibiotic therapy of Augmentin to treat sinusitis advising follow-up with primary care provider. Undiagnosed new problem with uncertain prognosis? @ -No Drug Therapy requiring intensive monitoring for toxicity (Heparin, Nitro, Insulin, Cardizem)? @ -No Were any procedures done? @ -No Diagnosis/symptom? @ -Sinusitis Acute, or Chronic, or Acute on Chronic? @ -Acute Uncomplicated (without systemic symptoms) or Complicated (systemic symptoms)? @ -Uncomplicated Side effects of treatment? @ -No Exacerbation, Progression, or Severe Exacerbation? @ -No Poses a threat to life or bodily function? How? (Chest pain, [place], [place], pneumonia, PE, COPD, DKA, ARF, appy, cholecystitis, CVA, Diverticulitis, Homicidal, Suicidal, threat to staff... and all critical care pts) @ -No. Case discussed with Dr. Wing. - Lab Data Result diagrams: 05/08/22 14:21 05/08/22 14:21 Lab Results 05/08/22 05/08/22 05/08/22 Range/Units 14:21 14:21 14:21 WBC 11.8 H (3.8-10.6) k/uL RBC 5.26 (4.30-5.90) m/uL Hgb 14.7 (13.0-17.5) gm/dL Hct 44.3 (39.0-53.0) % MCV 84.2 (80.0-100.0) fL MCH 27.9 (25.0-35.0) pg MCHC 33.1 (31.0-37.0) g/dL RDW 12.8 (11.5-15.5) % Plt Count 182 (150-450) k/uL MPV 7.2 Neutrophils % 86 % Lymphocytes % 5 % Monocytes % 7 % Eosinophils % 0 % Basophils % 0 % Neutrophils # 10.1 H (1.3-7.7) k/uL Lymphocytes # 0.6 L (1.0-4.8) k/uL Monocytes # 0.8 (0-1.0) k/uL Eosinophils # 0.0 (0-0.7) k/uL Basophils # 0.1 (0-0.2) k/uL Sodium 140 (137-145) mmol/L Potassium 4.5 (3.5-5.1) mmol/L Chloride 100 (98-107) mmol/L Carbon Dioxide 32 H (22-30) mmol/L Anion Gap 8 mmol/L BUN 15 (9-20) mg/dL Creatinine 0.78 (0.66-1.25) mg/dL Est GFR (CKD-EPI)AfAm >90 (>60 ml/min/1.73 sqM) Est GFR (CKD-EPI)NonAf >90 (>60 ml/min/1.73 sqM) Glucose 230 H (74-99) mg/dL Plasma Lactic Acid Ross 2.0 (0.7-2.0) mmol/L Calcium 9.2 (8.4-10.2) mg/dL Total Bilirubin 1.0 (0.2-1.3) mg/dL AST 27 (17-59) U/L ALT 27 (4-49) U/L Alkaline Phosphatase 97 (38-126) U/L Total Protein 6.9 (6.3-8.2) g/dL Albumin 4.0 (3.5-5.0) g/dL - Radiology Data Radiology results: report reviewed, image reviewed Disposition Clinical Impression: Sinusitis Disposition: HOME SELF-CARE Condition: Stable Instructions (If sedation given, give patient instructions): Sinusitis (ED) Additional Instructions: complete course of antibiotic of Augmentin as previously prescribed. Continue antihistamine and ibuprofen as well. Avoid allergens when possible. Please follow-up with your primary care provider. Please return to the Emergency Department if symptoms worsen or any other concerns. Is patient prescribed a controlled substance at d/c from ED?: No Referrals: Jordan Griffin MD [Primary Care Provider] - 1-2 days Time of Disposition: 15:21
--- NOTE | 2022-05-08 14:08 | CT ---
EXAMINATION TYPE: CT sinus wo con DATE OF EXAM: 05/08/2022 COMPARISON: None HISTORY: Nose swelling, sinus pressure, lip numbness CT DLP: 402 mGycm. Automated Exposure Control for Dose Reduction was Utilized. TECHNIQUE: CT scan of the sinuses is performed without contrast, axial images are obtained, coronal r eformatted images are also reviewed. FINDINGS: There is moderate chronic inflammatory change within the maxillary and ethmoid sinuses with a mucous retention cyst or polyp in the floor the right maxillary sinus and moderate mucosal thickening of the left maxillary sinus and ethmoid air cells. The right ostial complex is occluded by the mucosal thic kening. The left ostiomeatal complex is patent. There is minimal mucosal thickening in the frontal sinus and sphenoid sinuses. The intraorbital contents appear normal and symmetric. The osseous structures are intact. The nasal c avity is unremarkable. The mastoid air cells and middle ear cavities are well aerated. IMPRESSION: Moderate pansinusitis as described above. There are no air-fluid levels to suggest acute sinusitis. T here is no osseous abnormality.
[2022-05-08 14:39] LABS: Basophils # (A) 0.1 k/uL (0-0.2); Basophils % (A) 0 %; Eosinophils % (A) 0 %; HCT 44.3 % (39.0-53.0); HGB 14.7 gm/dL (13.0-17.5); Lymphocytes # (A) 0.6 k/uL (1.0-4.8); Lymphocytes % (A) 5 %; MCH 27.9 pg (25.0-35.0); MCHC 33.1 g/dL (31.0-37.0); MCV 84.2 fL (80.0-100.0); Mean Platelet Volume 7.2; Monocytes # (A) 0.8 k/uL (0-1.0); Monocytes % (A) 7 %; Neutrophils # (A) 10.1 k/uL (1.3-7.7); Neutrophils % (A) 86 %; Platelet Count 182 k/uL (150-450); RBC 5.26 m/uL (4.30-5.90); RDW 12.8 % (11.5-15.5); WBC 11.8 k/uL (3.8-10.6)
[2022-05-08 14:52] LABS: ALT 27 U/L (4-49); AST 27 U/L (17-59); African American GFR (CKD) >90 (>60 ml/min/1.73 sqM); Alkaline Phosphatase 97 U/L (38-126); Anion Gap 8 mmol/L; Blood Urea Nitrogen 15 mg/dL (9-20); Calcium 9.2 mg/dL (8.4-10.2); Carbon Dioxide 32 mmol/L (22-30); Chloride 100 mmol/L (98-107); Glucose 230 mg/dL (74-99); Non-African American GFR(CKD) >90 (>60 ml/min/1.73 sqM); Potassium 4.5 mmol/L (3.5-5.1); Sodium 140 mmol/L (137-145); Total Protein 6.9 g/dL (6.3-8.2)
[2022-05-08 15:26] VITALS: BP 118/75; PULSE 97; RESP 18
== END 2022-05-08 16:03 | disposition home or self-care (01) ==
LOC: EC 13:23
DX: J32.9 Chronic sinusitis, unspecified (principal); E11.9 Type 2 diabetes mellitus without complications; I10 Essential (primary) hypertension; E78.5 Hyperlipidemia, unspecified; Z79.84 Long term (current) use of oral hypoglycemic drugs; Z79.899 Other long term (current) drug therapy
CPT/HCPCS: 36415; 80053; 83605; 85025; 87040; 70486; 99284; 96374; J0696

== ENCOUNTER 2023-06-16 15:29 | Emergency (ER) | payer BC, OTHER ==
--- NOTE | 2023-06-16 16:49 | XR ---
EXAMINATION TYPE: XR foot complete bilateral DATE OF EXAM: 06/16/2023 4:31 PM CLINICAL INDICATION:Male, 57 years old with history of pain trauma; and endovaginal fell on feet COMPARISON: None. TECHNIQUE: 6 views of the bilateral feet FINDINGS: Osseous mineralization appears appropriate. Generally mild degenerative changes bilaterally, greatest at the metatarsophalangeal joints with joint space narrowing, marginal osteophytes, and some scleros is in the heads of the first metatarsals. Minimal hallux valgus. No evidence of acute fracture or dislocation bilaterally. The Lisfranc joints appear normally aligned . If there is persistent concern, cross-sectional imaging would be advised. No acute soft tissue findings. No radiopaque foreign bodies. IMPRESSION: No evidence of acute fracture or dislocation in either foot.
--- NOTE | 2023-06-16 19:15 | ED ---
General Adult HPI - General Chief complaint: Extremity Injury, Lower Stated complaint: IHS-Bilat foot injury Time Seen by Provider: 06/16/23 19:00 Source: patient, RN notes reviewed, old records reviewed Mode of arrival: wheelchair Limitations: no limitations - History of Present Illness Initial comments: Patient is a 57-year-old male who presents emergency department complaining of bilateral top of the foot pain. Dropped a piano bench on it earlier. Is concerned he may have injured his feet. States it hurts when walking. Denies any numbness. Has a history of diabetes, hypertension, hyperlipidemia. 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 Originally started in triage. I evaluated patient when he was placed in room after x-rays were completed. - Related Data Home Medications Medication Instructions Recorded Confirmed Dimethyl Fumarate [Tecfidera] 240 mg PO BID 12/25/14 10/30/21 Isosorbide Mononitrate [Isosorbide 30 mg PO DAILY 02/11/20 10/30/21 Mononitrate ER] Atorvastatin [Lipitor] 80 mg PO DAILY 09/30/21 10/30/21 Semaglutide [Rybelsus] 7 mg PO DAILY 10/01/21 10/30/21 Fgazxqnw-Huaqerwvy-Adoknjwq 1 drop LEFT EYE QID 10/30/21 10/30/21 [Maxitrol Ophth Susp] metFORMIN HCL 1,000 mg PO BID 10/30/21 10/30/21 Previous Rx's Medication Instructions Recorded Aspirin 81 mg PO DAILY chew 02/15/20 Clopidogrel [Plavix] 75 mg PO DAILY #90 tab 02/15/20 lisinopriL [Zestril] 2.5 mg PO DAILY #30 tab 02/15/20 Amoxic-Pot Clav 875-125Mg 1 tab PO Q12HR 10 Days #20 tab 05/05/22 [Augmentin 875-125] Ibuprofen [Motrin] 800 mg PO Q8HR PRN #30 tab 05/05/22 Loratadine [Claritin] 10 mg PO DAILY #7 tablet 05/05/22 Allergies Allergy/AdvReac Type Severity Reaction Status Date / Time No Known Allergies Allergy Verified 06/16/23 15:49 Review of Systems ROS Statement: Those systems with pertinent positive or pertinent negative responses have been documented in the HPI. Review of Systems: CONST: Denies fever EYES: Denies blurry vision ENT: Denies nasal congestion C/V: Denies Chest pain RESP: Denies shortness of breath GI: Denies abdominal pain : Denies dysuria SKIN: Denies rash. MSK: Endorses bilateral top of the foot pain NEURO: Denies headache ROS Other: All systems not noted in ROS Statement are negative. Past Medical History Past Medical History: Cancer, Diabetes Mellitus, Hyperlipidemia, Hypertension Additional Past Medical History / Comment(s): multiple scerlosis, testicular cancer, valley fever, bundle branch block, abdominal bloating and diarrhea History of Any Multi-Drug Resistant Organisms: None Reported Past Surgical History: Hernia Repair Additional Past Surgical History / Comment(s): surgery for testicular cancer. COLONOSCOPY Past Anesthesia/Blood Transfusion Reactions: No Reported Reaction Past Psychological History: Depression Smoking Status: Never smoker Past Alcohol Use History: None Reported Past Drug Use History: None Reported - Past Family History Mother Family Medical History: Diabetes Mellitus General Exam - General Exam Comments Initial Comments: General: Mild distress secondary to foot pain HEAD: Normal with no signs of head trauma. EYES: EOMI. ENT: Hearing grossly intact. RESPIRATORY: No respiratory distress. C/V: Regular rate and rhythm. ABD: Abdomen is nondistended. EXT: No obvious deformity. Tenderness and mild swelling to the dorsal aspect of bilateral feet. No obvious deformities. Neurovascular intact. SKIN: No rashes or lesions observed on exposed skin. NEURO: Alert and oriented. Limitations: no limitations Course Vital Signs 06/16/23 06/16/23 06/16/23 15:47 18:40 19:55 Temperature 98 F 98.3 F 97.7 F Pulse Rate 77 65 79 Respiratory 16 17 18 Rate Blood Pressure 147/80 175/87 177/99 O2 Sat by Pulse 97 97 97 Oximetry Medical Decision Making - Medical Decision Making Was pt. sent in by a medical professional or institution (, PA, HAND PACKER/PACKAGER, urgent care, hospital, or long-term...) When possible be specific @ -No Did you speak to anyone other than the patient for history (EMS, parent, family, police, friend...)? What history was obtained from this source @ -No Did you review nursing and triage notes (agree or disagree)? Why? @ -I reviewed and agree with nursing and triage notes Were old charts reviewed (outside hosp., previous admission, EMS record, old EKG, old radiological studies, urgent care reports/EKG's, long-term records)? Report findings @ -No old charts were reviewed Differential Diagnosis (chest pain, altered mental status, abdominal pain women, abdominal pain men, vaginal bleeding, weakness, fever, dyspnea, syncope, headache, dizziness, GI bleed, back pain, seizure, CVA, palpatations, mental health, musculoskeletal)? @ -Differential Musculoskeletal Muscular strain, contusion, ligament sprain, fracture, arthritis, septic arthritis, bursitis, cellulitis, muscle spasm, nerve compression, DVT, arterial occlusion, herpes zoster, electrolyte abnormality, tumor.... This is not meant to be in all inclusive list EKG interpreted by me (3pts min.). @ -None done X-rays interpreted by me (1pt min.). @ -Bilateral foot x-rays negative for any obvious fracture or injury. CT interpreted by me (1pt min.). @ -None done U/S interpreted by me (1pt. min.). @ -None done What testing was considered but not performed or refused? (CT, X-rays, U/S, labs)? Why? @ -None What meds were considered but not given or refused? Why? @ -None Did you discuss the management of the patient with other professionals (professionals i.e. , PA, HAND PACKER/PACKAGER, lab, RT, psych nurse, social work nurse, generalist, teacher, product safety officer, briefcase sewer)? Give summary @ -No Was smoking cessation discussed for >3mins.? @ -No Was critical care preformed (if so, how long)? @ -No Were there social determinants of health that impacted care today? How? (Homelessness, low income, unemployed, alcoholism, drug addiction, transportation, low edu. Level, literacy, decrease access to med. care, usp, rehab)? @ -No Was there de-escalation of care discussed even if they declined (Discuss DNR or withdrawal of care, Hospice)? DNR status @ -No What co-morbidities impacted this encounter? (DM, HTN, Smoking, COPD, CAD, Cancer, CVA, ARF, Chemo, Hep., AIDS, mental health diagnosis, sleep apnea, morbid obesity)? @ -None Was patient admitted / discharged? Hospital course, mention meds given and route, prescriptions, significant lab abnormalities, going to OR and other pertinent info. @ -Patient presents with blunt impact of bilateral dorsal feet. Exam unremarkable except for his tenderness. X-rays already obtained and were negative for any injury. Neurovascular intact. Vital signs within acceptable limits. I did the patient. He will be discharged home with Ortho shoes as well as crutches at his request. He will be given Tylenol 3 starter pack. Discussed his diagnosis is foot contusion. Recommended repeat x-rays in 7 to 10 days if he is still symptomatic. He was in agreement this plan. Recommended he not dance or perform any other strenuous activities that may injure his feet until he is feeling improved. Patient was in agreement this plan. I instructed the patient to follow up with their PCP in the next 1-3 days. I explained that the patient should return to the emergency department if they experience any worsening symptoms. Strict return precautions were discussed with the patient. The patient expressed understanding of these instructions. I answered all questions that the patient had. The patient was discharged home in good condition with their prescriptions and follow up information. Undiagnosed new problem with uncertain prognosis? @ -No Drug Therapy requiring intensive monitoring for toxicity (Heparin, Nitro, Insulin, Cardizem)? @ -No Were any procedures done? @ -No Diagnosis/symptom? @ -Bilateral foot contusions Acute, or Chronic, or Acute on Chronic? @ -Acute Uncomplicated (without systemic symptoms) or Complicated (systemic symptoms)? @ -Uncomplicated Side effects of treatment? @ -No Exacerbation, Progression, or Severe Exacerbation? @ -No Poses a threat to life or bodily function? How? (Chest pain, USA, CO, pneumonia, PE, COPD, DKA, ARF, appy, cholecystitis, CVA, Diverticulitis, Homicidal, Suicidal, threat to staff... and all critical care pts) @ -No Disposition Clinical Impression: Foot contusion Disposition: HOME SELF-CARE Condition: Good Instructions (If sedation given, give patient instructions): Foot Contusion (ED) Is patient prescribed a controlled substance at d/c from ED?: No Referrals: Jordan Griffin MD [Primary Care Provider] - 1-2 days Time of Disposition: 19:15
[2023-06-16] MEDS: ACET/COD 300 MG/30 MG STARTER PACK 6 TAB BTL PO STA (19:29)
[2023-06-16] MEDS: IBUPROFEN 800 MG TAB PO STA (19:29)
[2023-06-16 20:06] VITALS: BP 177/99; PULSE 79; RESP 18; TEMP 97.7
== END 2023-06-16 19:55 | disposition home or self-care (01) ==
LOC: EC 15:29
DX: S90.32XA Contusion of left foot, initial encounter (principal); S90.31XA Contusion of right foot, initial encounter; X58.XXXA Exposure to other specified factors, initial encounter; Y93.01 Activity, walking, marching and hiking
CPT/HCPCS: 99283

== ENCOUNTER → 2024-06-12 | Outpatient (CLI) | payer BC ==
--- NOTE | 2024-06-13 10:38 | MR ---
EXAMINATION TYPE: MR angio head wo con DATE OF EXAM: 06/12/2024 9:40 PM COMPARISON: None. CLINICAL INDICATION: Male, 58 years old with history of G35, rear syncope, r/o VBI. TECHNIQUE: Multiplanar multiecho imaging on a 3.0 Lois magnet is performed through the [facility]. 3-D [id number]-zw-[id number] imaging is performed. Source images are reviewed on the computer in the axi al plane. Reconstructed images rotating on the computer are reviewed. IV Contrast: mL (None, if empty) FINDINGS: The internal carotid arteries bifurcate normally into A1 and M1 segments. The A2 segments are normal. Middle cerebral artery branches are normal. Anterior communicating artery is patent. The right posterior communicating artery is patent. The left posterior communicating artery is absent. Vertebrobasilar arteries within the efdye-ln-lvhc are normal. Normal caliber basilar and posterior Sc haible arteries are present. Right vertebral intracranial artery is dominant. Left intracranial verte bral artery is patent. Posterior cerebral vasculature is normal. No suspicious aneurysm or aneurysma l dilatation is evident. No obstructions are identified. No significant flow-limiting stenosis is e vident. IMPRESSION: 1. NORMAL MRA [facility]. [facility], , 06/13/2024 10:36 AM
== END | disposition home or self-care (01) ==
LOC: RADMRIMAIN 21:00
PROVIDERS: ATTEND Psychiatry & Neurology Neurology
DX: G35 Multiple sclerosis (principal); R55 Syncope and collapse
CPT/HCPCS: 70544; 70553; A9585

== ENCOUNTER → 2024-06-13 | Outpatient (CLI) | payer BC ==
--- NOTE | 2024-06-17 11:44 | MR ---
EXAMINATION TYPE: MR cspine/tspine wo/w con DATE OF EXAM: 06/13/2024 10:09 PM COMPARISON: CTA chest 10/30/2021 CLINICAL INDICATION: Male, 58 years old with history of G35, MS, rear syncope, weakness, neck pain. IV Contrast: 8.5 cc Gadobutrol (None if empty) TECHNIQUE: Multiplanar, multisequence images of the cervicothoracic spine is performed without and with IV contr ast, utilizing 8.5 mL intravenous Gadobutrol . MS protocol. FINDINGS: The cervicothoracic vertebral bodies have preserved heights and alignment. Small T1/T2 hyperintense n onenhancing focus within the T10 vertebral body likely representing a benign bone island The remainin g osseous structures have normal signal intensity. Anterior osteophytosis at C4-C7. Additional multil evel anterior osteophytosis of the mid to lower thoracic spine. Multilevel disc desiccation throughou t the cervical thoracic spine. No abnormal STIR signal identified. The cervicothoracic spinal cord ap pears unremarkable. No abnormal contrast enhancement. Small central disc protrusion at C3-C4 with minimal effacement of the anterior thecal sac. No signifi cant central canal stenosis. No neural foraminal stenosis at this level. Broad-based disc bulge with mild effacement of the anterior thecal sac at C4-C5. Minimal central dolores l stenosis. Uncovertebral joint hypertrophy with moderate right and mild left neural foraminal stenos is. Eccentric right disc bulge with mild effacement of the anterior thecal sac at C5-C6. Mild central can al stenosis. Uncovertebral joint hypertrophy. Mild right and severe left neural foraminal stenosis. Broad base disc bulge without significant effacement of the anterior thecal sac at C6-C7. No signific ant central canal stenosis. Uncovertebral joint hypertrophy. Mild right and severe left neural forami nal stenosis. No other significant central canal or neuroforaminal stenosis of the cervical spine. Broad-based disc bulge at T2-T3 without significant effacement of the anterior thecal sac. No signifi cant neural foraminal stenosis. There is small right paracentral disc protrusion at T7-T8 with cranial migration approximately 6 mm o n the posterior cortex of the T7 vertebral body. Results in mild effacement of anterior thecal sac an d abutment of the ventral spinal cord. No cord signal change. No neural foraminal stenosis. No other significant central canal or neuroforamina stenosis of the thoracic spine. Right maxillary sinus 1.7 cm T2 hyperintense probable mucous retention cyst. IMPRESSION: 1. No evidence of abnormal cord signal or suspicious enhancement to suggest active demyelination. 2. 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 [facility], , 06/17/2024 11:42 AM
== END | disposition home or self-care (01) ==
LOC: RADMRIMAIN 20:45
PROVIDERS: ATTEND Psychiatry & Neurology Neurology
DX: M50.33 Other cervical disc degeneration, cervicothoracic region (principal); G35 Multiple sclerosis
CPT/HCPCS: 72156; 72157; A9585

== ENCOUNTER 2024-09-04 13:30 | Emergency (ER) | payer BC ==
[2024-09-04 14:16] LABS: Basophils # (A) 0.04 10*3/uL (0.00-0.10); Basophils % (A) 0.7 %; Eosinophils # (A) 0.09 10*3/uL (0.04-0.35); Eosinophils % (A) 1.5 %; HCT 43.7 % (39.6-50.0); HGB 14.7 g/dL (13.0-17.0); Lymphocytes # (A) 1.65 10*3/uL (0.90-5.00); Lymphocytes % (A) 27.4 %; MCH 27.9 pg (27.0-32.0); MCHC 33.6 g/dL (32.0-37.0); MCV 82.9 fL (80.0-97.0); Monocytes # (A) 0.53 10*3/uL (0.20-1.00); Monocytes % (A) 8.8 %; Neutrophils # (A) 3.68 10*3/uL (1.80-7.70); Neutrophils % (A) 61.1 %; Platelet Count 167 10*3/uL (140-440); RBC 5.27 10*6/uL (4.40-5.60); RDW 12.6 % (11.5-14.5); WBC 6.02 10*3/uL (4.50-10.00)
--- NOTE | 2024-09-04 14:28 | XR ---
EXAMINATION TYPE: XR chest 2V DATE OF EXAM: 09/04/2024 COMPARISON: NONE CLINICAL INDICATION: Male, 58 years old with history of Chest Pain; , TECHNIQUE: XR chest 2V views of the chest. FINDINGS: The lungs are clear and there is no pneumothorax, pleural effusion, or focal pneumonia. Heart size normal and no overt failure. Osseous structures demonstrate hypertrophic and degenerative changes of the spine. IMPRESSION: 1. No acute process. [facility], , 09/04/2024 2:25 PM
[2024-09-04 14:30] LABS: ALT 45 U/L (4-49); AST 35 U/L (17-59); African American GFR (CKD) >90 (>60 ml/min/1.73 sqM); Albumin 4.5 g/dL (3.5-5.0); Alkaline Phosphatase 97 U/L (38-126); Anion Gap 13 mmol/L; Blood Urea Nitrogen 28 mg/dL (9-20); Calcium 9.5 mg/dL (8.4-10.2); Carbon Dioxide 24 mmol/L (22-30); Chloride 102 mmol/L (98-107); Glucose 196 mg/dL (74-99); Magnesium 1.6 mg/dL (1.6-2.3); Non-African American GFR(CKD) >90 (>60 ml/min/1.73 sqM); Potassium 4.7 mmol/L (3.5-5.1); Sodium 139 mmol/L (137-145); Total Protein 6.6 g/dL (6.3-8.2)
[2024-09-04 14:38] LABS: INR 0.9 (<1.2); NT-Pro-B-Type Natriuretic Pept 67 pg/mL; Partial Thromboplastin Time 24.0 sec (22.0-30.0); Prothrombin Time 10.5 sec (10.0-12.5)
--- NOTE | 2024-09-04 15:44 | ED ---
Chest Pain HPI - General Chief Complaint: Chest Pain Stated Complaint: MISAEL/Chest Pain Time Seen by Provider: 09/04/24 14:57 Source: patient, RN notes reviewed, old records reviewed Mode of arrival: ambulatory Limitations: no limitations - History of Present Illness Initial Comments: This is a 58-year-old male to ER with chest pain chest pain that feels like prior MD 2 stents placed in the past both had similar symptoms. Patient does not follow with bioinformatics developer at this hospital but usually takes a nitro and symptoms can improve that did not happen today and he presents to the ER with chest pain today. Chest pain is improving actually while here in the emergency department no shortness of breath patient states he has memory issues secondary to underlying MS MD Complaint: chest pain -: days(s) Onset: during rest, during exertion Pain Location: substernal, left chest Pain Radiation: none Severity: mild Severity scale (1-10): 3 Quality: tightness Consistency: constant Improves With: nothing Worsens With: nothing Context: recent illness Anginal Symptoms: nausea Other Symptoms: palpitations Treatments Prior to Arrival: none - Related Data Home Medications Medication Instructions Recorded Confirmed Dimethyl Fumarate [Tecfidera] 240 mg PO BID 12/25/14 09/04/24 Isosorbide Mononitrate [Isosorbide 30 mg PO DAILY 02/11/20 09/04/24 Mononitrate ER] Atorvastatin [Lipitor] 80 mg PO DAILY 09/30/21 09/04/24 Baclofen 10 mg PO DAILY 09/04/24 09/04/24 Ezetimibe [Zetia] 10 mg PO DAILY 09/04/24 09/04/24 Metoprolol Succinate (ER) [Toprol 25 mg PO HS 09/04/24 09/04/24 Xl] Nitroglycerin Sl Tabs [Nitrostat] 0.4 mg SUBLINGUAL Q5M PRN 09/04/24 09/04/24 Semaglutide [Rybelsus] 14 mg PO DAILY 09/04/24 09/04/24 metFORMIN HCL ER [Glucophage XR] 500 mg PO BID 09/04/24 09/04/24 valACYclovir HCL [Valtrex] 1,000 mg PO DAILY PRN 09/04/24 09/04/24 Previous Rx's Medication Instructions Recorded Aspirin 81 mg PO DAILY chew 02/15/20 lisinopriL [Zestril] 2.5 mg PO DAILY #30 tab 02/15/20 Allergies Allergy/AdvReac Type Severity Reaction Status Date / Time No Known Allergies Allergy Verified 09/04/24 17:15 Review of Systems ROS Statement: Those systems with pertinent positive or pertinent negative responses have been documented in the HPI. ROS Other: All systems not noted in ROS Statement are negative. Past Medical History Past Medical History: Coronary Artery Disease (CAD), Cancer, Diabetes Mellitus, Hyperlipidemia, Hypertension Additional Past Medical History / Comment(s): multiple scerlosis, testicular ca ncer, valley fever, bundle branch block, abdominal bloating and diarrhea History of Any Multi-Drug Resistant Organisms: None Reported Past Surgical History: Heart Catheterization With Stent, Hernia Repair Additional Past Surgical History / Comment(s): surgery for testicular cancer. COLONOSCOPY Past Anesthesia/Blood Transfusion Reactions: No Reported Reaction Past Psychological History: Depression Smoking Status: Never smoker Past Alcohol Use History: None Reported Past Drug Use History: None Reported - Past Family History Mother Family Medical History: Diabetes Mellitus General Exam Limitations: no limitations General appearance: alert, in no apparent distress Head exam: Present: atraumatic, normocephalic, normal inspection Eye exam: Present: normal appearance, PERRL, EOMI. Absent: scleral icterus, conjunctival injection, periorbital swelling ENT exam: Present: normal exam, mucous membranes moist Neck exam: Present: normal inspection. Absent: tenderness, meningismus, lymphadenopathy Respiratory exam: Present: normal lung sounds bilaterally. Absent: respiratory distress, wheezes, rales, rhonchi, stridor Cardiovascular Exam: Present: regular rate, normal rhythm, normal heart sounds. Absent: systolic murmur, diastolic murmur, rubs, gallop, clicks GI/Abdominal exam: Present: soft, normal bowel sounds. Absent: distended, tenderness, guarding, rebound, rigid Extremities exam: Present: normal inspection, full ROM, normal capillary refill. Absent: tenderness, pedal edema, joint swelling, calf tenderness Back exam: Present: normal inspection Neurological exam: Present: alert, oriented X3, CN II-XII intact Psychiatric exam: Present: normal affect, normal mood Skin exam: Present: warm, dry, intact, normal color. Absent: rash Course Vital Signs 09/04/24 09/04/24 09/04/24 13:34 15:18 16:16 Temperature 97.7 F Pulse Rate 89 64 73 Pulse Rate [ 88 Supine Seconds Grader] Respiratory 20 14 16 Rate Blood Pressure 117/73 125/69 97/69 O2 Sat by Pulse 98 100 96 Oximetry 09/04/24 18:20 Temperature Pulse Rate 75 Pulse Rate [ Supine Seconds Grader] Respiratory 16 Rate Blood Pressure 109/71 O2 Sat by Pulse 96 Oximetry - Reevaluation(s) Reevaluation #1: 09/04/24 17:59 Medical records reviewed Reevaluation #2: 09/04/24 17:59 Patient's chest pain is improving throughout ER stay Reevaluation #4: Was pt. sent in by a medical professional or institution (, ARELIS, CITRIX ENGINEER, urgent care, hospital, or jail...) When possible be specific @ -no Did you speak to anyone other than the patient for history (EMS, parent, family, police, friend...)? What history was obtained from this source @ -no Did you review nursing and triage notes (agree or disagree)? Why? @ -agree Are old charts reviewed (outside hosp., previous admission, EMS record, old EKG, old radiological studies, urgent care reports/EKG's, jail records)? Report findings @ -yes Differential Diagnosis (chest pain, altered mental status, abdominal pain women, abdominal pain men, vaginal bleeding, weakness, fever, dyspnea, syncope, headache, dizziness, GI bleed, back pain, seizure, CVA, palpatations, mental health, musculoskeletal)? @ -prior EKG interpreted by me (3pts min.). @ -yes X-rays interpreted by me (1pt min.). @ -yes negative for acute disease CT interpreted by me (1pt min.). @ -no U/S interpreted by me (1pt. min.). @ -no What testing was considered but not performed or refused? (CT, X-rays, U/S, labs)? Why? @ -none What meds were considered but not given or refused? Why? @ -none Did you discuss the management of the patient with other professionals (professionals i.e. ARELIS Lawler, CITRIX ENGINEER, lab, RT, psych nurse, protective services social worker, hosiery knitter, teacher, chairman and chief executive officer, supportive employment case manager)? Give summary @ -no Was smoking cessation discussed for >3mins.? @ -no Was critical care preformed (if so, how long)? @ -no Were there social determinants of health that impacted care today? How? (Homelessness, low income, unemployed, alcoholism, drug addiction, transportati on, low edu. Level, literacy, decrease access to med. care, retirement, rehab)? @ -none Was there de-escalation of care discussed even if they declined (Discuss DNR or withdrawal of care, Hospice)? DNR status @ -no What co-morbidities impacted this encounter? (DM, HTN, Smoking, COPD, CAD, Cancer, CVA, ARF, Chemo, Hep., AIDS, mental health diagnosis, sleep apnea, morbid obesity)? @ -none Was patient admitted / discharged? Hospital course, mention meds given and route, prescriptions, significant lab abnormalities, going to OR and other pertinent info. @ - Undiagnosed new problem with uncertain prognosis? @ -no Drug Therapy requiring intensive monitoring for toxicity (Heparin, Nitro, Insulin, Cardizem)? @ -no Were any procedures done? @ -no Diagnosis/symptom? @ - Acute, or Chronic, or Acute on Chronic? @ -Acute Uncomplicated (without systemic symptoms) or Complicated (systemic symptoms)? @ -Complicated Side effects of treatment? @ -no Exacerbation, Progression, or Severe Exacerbation? @ -exacerbation Poses a threat to life or bodily function? How? (Chest pain, USA, MD, pneumonia, PE, COPD, DKA, ARF, appy, cholecystitis, CVA, Diverticulitis, Homicidal, Suicidal, threat to staff... and all critical care pts) @ -yes Reevaluation #5: Differential Chest Pain: Stable Angina, Unstable Angina, STEMI, NSTEMI Aortic Dissection, Pneumothorax, Musculoskeletal, Esophageal Spasm GERD, Cholecystitis, Pancreatitis, Zoster, this is not meant to be an all-inclusive list. Disposition Clinical Impression: Chest pain Disposition: HOME SELF-CARE Condition: Fair Instructions (If sedation given, give patient instructions): Chest Pain (ED) Is patient prescribed a controlled substance at d/c from ED?: No Referrals: Jaspal Clark MD [Primary Care Provider] - 1-2 days Time of Disposition: 19:00
[2024-09-04 16:17] VITALS: RESP 16
[2024-09-04 19:46] VITALS: BP 124/78; PULSE 79; TEMP 97.9
== END 2024-09-04 19:48 | disposition home or self-care (01) ==
LOC: EC 13:30
DX: R07.9 Chest pain, unspecified (principal)
CPT/HCPCS: 36415; 71046; 80053; 83735; 83880; 84484; 85025; 85379; 85610; 85730; 93005; 99285